=== PATIENT | female | born 1970 | race African-American/Black ===

== ENCOUNTER 2020-07-09 15:49 | Emergency (ER) | payer OTHER, SELFPAY ==
[2020-07-09 16:30] VITALS: BP 143/93; PULSE 100; RESP 18; TEMP 36.6; O2SAT 98; BMI 34.9
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
== END 2020-07-09 18:05 | disposition home or self-care (01) ==
PROVIDERS: Emergency Provider Emergency Medicine; PCP Internal Medicine
DX: S39.012A Strain of muscle, fascia and tendon of lower back, initial encounter (principal); S80.02XA Contusion of left knee, initial encounter; V43.52XA Car driver injured in collision with other type car in traffic accident, initial encounter; Y93.9 Activity, unspecified; Y92.414 Local residential or business street as the place of occurrence of the external cause; Y99.9 Unspecified external cause status
CPT/HCPCS: 72100; 73564; 99283

== ENCOUNTER → 2020-07-11 08:53 | Outpatient (BNVA) | payer OTHER, SELFPAY | PROVIDERS: PCP Internal Medicine; Referring Provider Internal Medicine; Visit Provider Advanced Practice Midwife | DX: Z76.89 Persons encountering health services in other specified circumstances (principal) ==

== ENCOUNTER 2021-09-23 11:09 | Outpatient (REF) | payer OTHER, SELFPAY ==
[2021-09-23 11:13] LABS: MANUAL DIFF FLAG NO
[2021-09-23 11:19] LABS: Appearance Urine HAZY; Color Urine YELLOW; Glucose Urine UA NEG (NEG); Leukocyte Esterase Urine NEG (NEG); Nitrite Urine NEG (NEG); Urine Blood TRACE (NEG); Urine Ketones NEG (NEG); Urine Protein 1+ MG/DL (NEG-TRACE)
[2021-09-23 11:20] LABS: Basophils Percent Auto 0.7 % (0-2); Eosinophils Absolute Auto 0.1 X10*3/uL (0.0-0.4); Eosinophils Percent Auto 1.5 % (0-4); Hematocrit 46.4 % (37.0-47.0); Hemoglobin 14.9 g/dl (12.0-16.0); Imm Gran Abs Auto 0.01 X10*3/uL (0.00-0.03); Imm Gran Pct Auto 0.2 % (0.0-0.4); Lymphocytes Absolute Auto 2.8 X10*3/uL (1.2-4.9); Lymphocytes Percent Auto 47.3 % (20-40); Mean Corpuscular HGB Conc 32.1 g/dl (31.0-35.0); Mean Corpuscular Hemoglobin 27.4 pg (27.0-33.0); Mean Corpuscular Volume 85.3 fL (80.0-98.0); Mean Platelet Volume 11.4 fL (9.4-12.3); Monocytes Absolute Auto 0.4 X10*3/uL (0.1-1.2); Monocytes Percent Auto 7.5 % (2-11); Neutrophils Absolute Auto 2.5 x10*3/uL (2.0-8.3); Neutrophils Percent Auto 42.8 % (45-73); Platelet Count 251 X10*3/uL (160-400); Red Blood Count 5.44 X10*6/uL (4.20-5.50); Red Cell Distribution Width 13.2 % (11.0-16.0); White Blood Count 5.9 X10*3/uL (4.8-10.8)
[2021-09-23 11:34] LABS: Alanine Aminotransferase 41 U/L (0-31); Albumin Level 4.4 g/dL (3.5-5.0); Alkaline Phosphatase 127 U/L (39-117); Anion Gap 13 (12-20); Aspartate Amino Transferase 26 U/L (5-31); Bilirubin Total 0.5 mg/dL (0.0-1.0); Blood Urea Nitrogen 11 mg/dL (9-16); Carbon Dioxide 30 mmol/L (22-29); Chloride 98 mmol/L (96-108); Cholesterol 182 mg/dL; Estimated Glomerular Filt Rate 54; Glucose Random 109 mg/dL (60-115); HDL Cholesterol 39 mg/dL; LDL Cholesterol Calculated 125 mg/dl; Sodium 137 mmol/L (135-145); Total Protein 7.7 g/dL (6.5-8.0); Triglycerides 94 mg/dL
[2021-09-23 11:54] LABS: Bacteria Urine 2+ /LPF; Mucus Urine 2+ /LPF; RBC Urine 0 /HPF (0); Squamous Epithelial Cell Urine 2+ /LPF
[2021-09-25 14:21] LABS: Vitamin D 25-OH Total 53.1 ng/mL (>30)
== END 2021-09-23 11:10 | disposition home or self-care (01) ==
LOC: HO.LNP 11:09
PROVIDERS: Visit Provider Internal Medicine
DX: Z00.00 Encounter for general adult medical examination without abnormal findings (principal); I10 Essential (primary) hypertension; E78.00 Pure hypercholesterolemia, unspecified; E55.9 Vitamin D deficiency, unspecified; D72.820 Lymphocytosis (symptomatic)
CPT/HCPCS: 80053; 80061; 81001; 82306; 85025

== ENCOUNTER 2021-10-31 10:39 | Outpatient (REF) | payer OTHER, SELFPAY ==
[2021-10-31 10:46] LABS: Appearance Urine HAZY; Color Urine YELLOW; Glucose Urine UA NEG (NEG); Leukocyte Esterase Urine TRACE (NEG); Nitrite Urine NEG (NEG); Specific Gravity - Urine 1.025 (1.005-1.025); Urine Blood NEG (NEG); Urine Ketones NEG (NEG); Urine Protein 1+ MG/DL (NEG-TRACE)
[2021-10-31 11:00] LABS: Bacteria Urine 2+ /LPF; Squamous Epithelial Cell Urine 4+ /LPF
[2021-10-31 11:01] LABS: RBC Urine 0-2 /HPF (0); WBC Urine 0-2 /HPF (0-4)
== END 2021-10-31 10:40 | disposition home or self-care (01) ==
LOC: HO.LNP 10:39
PROVIDERS: Visit Provider Internal Medicine
DX: R80.8 Other proteinuria (principal)
CPT/HCPCS: 81001

== ENCOUNTER 2022-08-26 13:38 | Outpatient (REF) | payer BC, SELFPAY ==
--- NOTE | ~2022-08-26 | XR_ITS ---
EXAMINATION: XR chest 2V CLINICAL INFORMATION: Reason for Exam PERSISTENT COUGH COMPARISON: None TECHNIQUE: 2 views of the chest XR/XR chest 2V FINDINGS/IMPRESSION: Clear lungs. No pneumothorax. No pleural effusion. Normal cardiomediastinal silhouette.
== END 2022-08-26 13:39 | disposition home or self-care (01) ==
LOC: HO.XRAY 13:38
PROVIDERS: PCP Internal Medicine; Visit Provider Internal Medicine
DX: R05.3 Chronic cough (principal)
CPT/HCPCS: 71046

== ENCOUNTER 2022-10-01 10:29 | Outpatient (REF) | payer BC, SELFPAY ==
[2022-10-01 10:34] LABS: MANUAL DIFF FLAG NO
[2022-10-01 10:55] LABS: Appearance Urine Clear; Color Urine Yellow; Glucose Urine UA Negative (Negative); Leukocyte Esterase Urine Negative (Negative); Nitrite Urine Negative (Negative); Specific Gravity - Urine 1.015 (1.005-1.025); Urine Blood Negative (Negative); Urine Ketones Negative (Negative); Urine Protein Negative (Neg-Trace)
[2022-10-01 10:58] LABS: Basophils Absolute Auto 0.1 X10*3/uL (0.0-0.2); Basophils Percent Auto 0.9 % (0-2); Eosinophils Absolute Auto 0.1 X10*3/uL (0.0-0.4); Eosinophils Percent Auto 1.2 % (0-4); Hematocrit 46.4 % (37.0-47.0); Hemoglobin 14.9 g/dl (12.0-16.0); Imm Gran Abs Auto 0.01 X10*3/uL (0.00-0.03); Imm Gran Pct Auto 0.2 % (0.0-0.4); Lymphocytes Absolute Auto 3.1 X10*3/uL (1.2-4.9); Lymphocytes Percent Auto 47.1 % (20-40); Mean Corpuscular HGB Conc 32.1 g/dl (31.0-35.0); Mean Corpuscular Volume 84.2 fL (80.0-98.0); Mean Platelet Volume 11.2 fL (9.4-12.3); Monocytes Absolute Auto 0.6 X10*3/uL (0.1-1.2); Monocytes Percent Auto 8.7 % (2-11); Neutrophils Absolute Auto 2.8 x10*3/uL (2.0-8.3); Neutrophils Percent Auto 41.9 % (45-73); Platelet Count 267 X10*3/uL (160-400); Red Blood Count 5.51 X10*6/uL (4.20-5.50); Red Cell Distribution Width 12.9 % (11.0-16.0); White Blood Count 6.6 X10*3/uL (4.8-10.8)
[2022-10-01 10:59] LABS: Bacteria Urine None Seen (None Seen); Hyaline Casts Urine 0-2 /LPF (0-2); RBC Urine 0-2 /HPF (0-2); WBC Urine 0-5 /HPF (0-5)
[2022-10-01 11:30] LABS: Alanine Aminotransferase 29 U/L (0-31); Albumin Level 4.4 g/dL (3.5-5.0); Alkaline Phosphatase 110 U/L (39-117); Anion Gap 17 (12-20); Aspartate Amino Transferase 22 U/L (5-31); Bilirubin Total 0.8 mg/dL (0.0-1.0); Blood Urea Nitrogen 10 mg/dL (9-16); Calcium 9.8 mg/dL (8.4-10.2); Carbon Dioxide 30 mmol/L (22-29); Chloride 98 mmol/L (96-108); Cholesterol 207 mg/dL; Estimated Glomerular Filt Rate > 60; Glucose Fasting 103 mg/dL (60-99); HDL Cholesterol 37 mg/dL; LDL Cholesterol Calculated 140 mg/dl; Potassium 3.5 mmol/L (3.3-5.1); Sodium 141 mmol/L (135-145); Total Protein 7.4 g/dL (6.5-8.0); Triglycerides 151 mg/dL
[2022-10-01 11:33] LABS: Vitamin D 25-OH Total 44.3 ng/mL (>30)
== END 2022-10-01 10:30 | disposition home or self-care (01) ==
LOC: HO.LNP 10:29
PROVIDERS: Visit Provider Internal Medicine
DX: Z00.00 Encounter for general adult medical examination without abnormal findings (principal); I10 Essential (primary) hypertension; E78.00 Pure hypercholesterolemia, unspecified; E55.9 Vitamin D deficiency, unspecified; D72.820 Lymphocytosis (symptomatic)
CPT/HCPCS: 80053; 80061; 81001; 82306; 85025

== ENCOUNTER 2023-01-08 10:34 | Outpatient (REF) | payer BC, SELFPAY ==
[2023-01-08 11:29] LABS: Alanine Aminotransferase 29 U/L (0-31); Albumin Level 4.2 g/dL (3.5-5.0); Alkaline Phosphatase 112 U/L (39-117); Aspartate Amino Transferase 22 U/L (5-31); Bilirubin Direct 0.1 mg/dL (0.0-0.5); Bilirubin Total 0.5 mg/dL (0.0-1.0); Cholesterol 206 mg/dL; HDL Cholesterol 41 mg/dL; LDL Cholesterol Calculated 141 mg/dl; Total Protein 7.2 g/dL (6.5-8.0); Triglycerides 124 mg/dL
== END 2023-01-08 10:35 | disposition home or self-care (01) ==
LOC: HO.LNP 10:34
PROVIDERS: Visit Provider Internal Medicine
DX: E78.00 Pure hypercholesterolemia, unspecified (principal)
CPT/HCPCS: 80061; 80076

== ENCOUNTER 2023-11-19 11:26 | Outpatient (REF) | payer BC, SELFPAY ==
[2023-11-19 11:29] LABS: MANUAL DIFF FLAG NO
[2023-11-19 12:08] LABS: Appearance Urine Cloudy; Color Urine Dark Yellow; Glucose Urine UA Negative (Negative); Leukocyte Esterase Urine Trace (Negative); Nitrite Urine Negative (Negative); PH 5.5 (5.0-9.0); Specific Gravity - Urine >= 1.030 (1.005-1.025); UMIC TRIGGER UACC YES; Urine Blood Negative (Negative); Urine Ketones Trace mg/dL (Negative); Urine Protein 30 (1+) mg/dL (Neg-Trace)
[2023-11-19 12:24] LABS: Basophils Absolute Auto 0.1 X10*3/uL (0.0-0.2); Basophils Percent Auto 0.9 % (0-2); Eosinophils Absolute Auto 0.1 X10*3/uL (0.0-0.4); Eosinophils Percent Auto 1.2 % (0-4); Hematocrit 43.9 % (37.0-47.0); Hemoglobin 14.2 g/dl (12.0-16.0); Imm Gran Abs Auto 0.01 X10*3/uL (0.00-0.03); Imm Gran Pct Auto 0.1 % (0.0-0.4); Lymphocytes Absolute Auto 3.3 X10*3/uL (1.2-4.9); Lymphocytes Percent Auto 48.8 % (20-40); Mean Corpuscular HGB Conc 32.3 g/dl (31.0-35.0); Mean Corpuscular Hemoglobin 27.3 pg (27.0-33.0); Mean Corpuscular Volume 84.4 fL (80.0-98.0); Mean Platelet Volume 11.6 fL (9.4-12.3); Monocytes Absolute Auto 0.3 X10*3/uL (0.1-1.2); Monocytes Percent Auto 4.8 % (2-11); Neutrophils Percent Auto 44.2 % (45-73); Platelet Count 233 X10*3/uL (160-400); Red Cell Distribution Width 13.3 % (11.0-16.0); White Blood Count 6.8 X10*3/uL (4.8-10.8)
[2023-11-19 12:43] LABS: Bacteria Urine Trace (None Seen); Hyaline Casts Urine 0-2 /LPF (0-2); Squamous Epithelial Cell Urine >20 /HPF (0-2); WBC Urine 0-5 /HPF (0-5)
[2023-11-19 12:44] LABS: Alanine Aminotransferase 25 U/L (0-31); Albumin Level 4.2 g/dL (3.5-5.0); Alkaline Phosphatase 111 U/L (39-117); Anion Gap 13 (12-20); Aspartate Amino Transferase 21 U/L (5-31); Bilirubin Total 0.4 mg/dL (0.0-1.0); Blood Urea Nitrogen 9 mg/dL (9-16); Calcium 9.4 mg/dL (8.4-10.2); Carbon Dioxide 28 mmol/L (22-29); Chloride 104 mmol/L (96-108); Cholesterol 185 mg/dL (<200); Estimated Glomerular Filt Rate > 60; Glucose Fasting 96 mg/dL (60-99); HDL Cholesterol 40 mg/dL (>40); LDL Cholesterol Calculated 118 mg/dL (<100); Potassium 3.6 mmol/L (3.3-5.1); RBC Urine 0-2 /HPF (0-2); Sodium 141 mmol/L (135-145); Total Protein 7.5 g/dL (6.5-8.0); Triglycerides 139 mg/dL (<150)
[2023-11-19 12:59] LABS: Vitamin D 25-OH Total 60.9 ng/mL (>30)
== END 2023-11-19 11:27 | disposition home or self-care (01) ==
LOC: HO.LNP 11:26
PROVIDERS: Visit Provider Internal Medicine
DX: Z00.00 Encounter for general adult medical examination without abnormal findings (principal); I10 Essential (primary) hypertension; E55.9 Vitamin D deficiency, unspecified; D72.820 Lymphocytosis (symptomatic)
CPT/HCPCS: 80053; 80061; 81001; 82306; 85025

== ENCOUNTER 2024-11-24 11:25 | Outpatient (REF) | payer BC, SELFPAY ==
--- OUTSIDE RECORDS SUMMARY | 2024-11-24 11:28 | XMS_ITS | Patient Health Record ---
Author Organization [facility] Address [address] [place] [phone] Care Team Providers Care Electronic Lab Technician Name Role Phone Dilshad Camarena MD Primary Care Provider Steve Gongora [phone] Allergies Allergen (clinical drug ingredient) Drug/Non Drug Allergy documented on EMR Reaction Allergy Type Onset Date Status Substance with sulfonamide structure and antibacterial mechanism of action (substance) Sulfa Antibiotics Unknown Drug Allergy Active Reason For Referral No Information Medications Medication SIG (Take, Route, Frequency, Duration) Notes Start Date End Date Status hydroCHLOROthiazide 25 MG Oral for 90 Active amLODIPine Besylate 10 MG TAKE 1 TABLET BY MOUTH EVERY DAY Oral for 90 Active Atorvastatin Calcium 80 MG Oral for 90 Active Immunizations Vaccine Route Administration Date Status Comme nts Influenza Unknown 04/05/2024 Refused Social History Tobacco Use: Social History Observation Description Date Details (start date - stop date) Never Smoker NA - NA Tobacco Use/Smoking Question Answer Notes Patient is a nonsmoker Alcohol Screen Question Answer Notes Did you have a drink contain ing alcohol in the past year? Yes How often did you have a dri nk containing alcohol in the past year? 2 to 4 times a month (2 points) How many drinks did you have on a typical day when you were drinking in the past year? 1 or 2 drinks (0 point) How often did you have 6 or more drinks on one occasion in the past year? Never (0 point) Points 2 Interpretation Negative Section Notes: Nonsmoker; no sig alcohol Problems Problem Type SNOMED Code ICD Code Onset Dates Problem Status W/U Status Risk Notes Problem Pre-procedure evaluation check (172998953) Encounter for other preprocedural examination (Z01.818) Active confirmed Problem Screening for colon cancer (486980513) Screening for colon cancer (Z12.11) Active confirmed Vital Signs Temperature 97.5 degrees Fahrenheit 04/05/2024 Blood pressure diastolic 00 mm Hg 04/05/2024 Height 5 ft 1.5 in in 04/05/2024 Blood pressure systolic 000 mm Hg 04/05/2024 Weight 193 lb 8 oz lbs 04/05/2024 BMI 35.97 kg/m2 04/05/2024 Encounters Encounter Location Date Provider Diagnosis [facility] [address] [place] [phone] 04/05/2024 Steve Francis Screening for colon cancer Z12.11 and Encounter for other preprocedural examination Z01.818 [facility] [address] [place] [phone] 07/17/2024 Steve Francis Assessments Encounter Date Diagnosis (ICD Code) Assessment Notes Treatment Notes Treatment Clinical Notes Section Notes 04/05/2024 Encounter for other preprocedural examination (ICD-10 - Z01.818) Overall, Braydon appears quite well. Given her age, good clinical appearance, and never having had a colonoscopy, I did recommend a colonoscopy for screening purposes. We did review the rationale for this regard to colon cancer prevention. Full consent is obtained for this, including risks of bleeding and perforation. The procedure will be done with monitored anesthesia care. She was given the below instructions regarding adjustment of her medication for the procedure. Braydon was comfortable with this plan. Thank you again for allowing me to participate in Braydon's care. I shall continue to keep you advised of her progress. 04/05/2024 Screening for colon cancer (ICD-10 - Z12.11) Do not take the Hydrochlorothiazide the day before or on the day of the colonoscopy Overall, Braydon appears quite well. Given her age, good clinical appearance, and never having had a colonoscopy, I did recommend a colonoscopy for screening purposes. We did review the rationale for this regard to colon cancer prevention. Full consent is obtained for this, including risks of bleeding and perforation. The procedure will be done with monitored anesthesia care. She was given the below instructions regarding adjustment of her medication for the procedure. Braydon was comfortable with this plan. Thank you again for allowing me to participate in Braydon's care. I shall continue to keep you advised of her progress. Plan Of Treatment Future Test Test Name Order Date COLONOSCOPY 04/05/2024 Insurance Providers Payer Name Payer Address Payer Phone Subscriber Number Group Number Insured Name Patient Relationship to Insured Coverage Start Date Coverage End Date [facility] [address] [place] [address] [id number] BRAYDON WEBB Self - patient is the insured Medical (General) History Medical History History ICD Code HTN Denies NM,DM,CVA,Lung disease,renal dise ase Hyperlipidemia Surgical History Surgery Date(Month/Year) Partial hysterectomy D&C
[2024-11-24 11:31] LABS: MANUAL DIFF FLAG NO
[2024-11-24 12:05] LABS: Basophils Percent Auto 0.7 % (0-2); Eosinophils Absolute Auto 0.1 X10*3/uL (0.0-0.4); Eosinophils Percent Auto 1.8 % (0-4); Hemoglobin 14.5 g/dl (12.0-16.0); Imm Gran Abs Auto 0.01 X10*3/uL (0.00-0.03); Imm Gran Pct Auto 0.2 % (0.0-0.4); Lymphocytes Absolute Auto 2.9 X10*3/uL (1.2-4.9); Lymphocytes Percent Auto 46.6 % (20-40); Mean Corpuscular Hemoglobin 27.3 pg (27.0-33.0); Mean Corpuscular Volume 82.7 fL (80.0-98.0); Mean Platelet Volume 11.3 fL (9.4-12.3); Monocytes Absolute Auto 0.4 X10*3/uL (0.1-1.2); Neutrophils Absolute Auto 2.7 x10*3/uL (2.0-8.3); Neutrophils Percent Auto 43.7 % (45-73); Platelet Count 249 X10*3/uL (160-400); Red Blood Count 5.32 X10*6/uL (4.20-5.50); Red Cell Distribution Width 12.9 % (11.0-16.0); White Blood Count 6.1 X10*3/uL (4.8-10.8)
[2024-11-24 12:14] LABS: Appearance Urine Cloudy; Color Urine Dark Yellow; Glucose Urine UA Negative (Negative); Leukocyte Esterase Urine Negative (Negative); Nitrite Urine Negative (Negative); PH 5.5 (5.0-9.0); Specific Gravity - Urine 1.025 (1.005-1.025); Urine Blood Negative (Negative); Urine Ketones Trace mg/dL (Negative); Urine Protein Trace mg/dL (Neg-Trace)
[2024-11-24 12:28] LABS: Bacteria Urine None Seen (None Seen); RBC Urine 0-2 /HPF (0-2); WBC Urine 0-5 /HPF (0-5)
[2024-11-24 12:38] LABS: Alanine Aminotransferase 36 U/L (0-31); Albumin Level 4.4 g/dL (3.5-5.0); Alkaline Phosphatase 108 U/L (39-117); Anion Gap 12 (12-20); Aspartate Amino Transferase 32 U/L (5-31); Bilirubin Total 0.5 mg/dL (0.0-1.0); Blood Urea Nitrogen 14 mg/dL (9-16); Calcium 9.8 mg/dL (8.4-10.2); Carbon Dioxide 32 mmol/L (22-29); Chloride 101 mmol/L (96-108); Cholesterol 164 mg/dL (<200); Estimated Glomerular Filt Rate > 60; Glucose Fasting 96 mg/dL (60-99); HDL Cholesterol 37 mg/dL (>40); LDL Cholesterol Calculated 111 mg/dL (<100); Sodium 142 mmol/L (135-145); Total Protein 7.8 g/dL (6.5-8.0); Triglycerides 84 mg/dL (<150)
[2024-11-24 12:56] LABS: Vitamin D 25-OH Total 70.3 ng/mL (>30)
== END 2024-11-24 11:26 | disposition home or self-care (01) ==
LOC: HO.LNP 11:25
PROVIDERS: Visit Provider Internal Medicine
DX: Z00.00 Encounter for general adult medical examination without abnormal findings (principal); I10 Essential (primary) hypertension; E55.9 Vitamin D deficiency, unspecified; E78.00 Pure hypercholesterolemia, unspecified
CPT/HCPCS: 80053; 80061; 81001; 82306; 85025

== ENCOUNTER 2024-12-26 10:29 | Outpatient (REF) | payer BC, SELFPAY ==
[2024-12-26 11:17] LABS: Potassium 2.9 mmol/L (3.3-5.1)
--- OUTSIDE RECORDS SUMMARY | 2024-12-26 11:45 | XMS_ITS | Data Portability ---
Author Organization [facility] [employer] [facility], [address] Address [address] [place] [address] Assessment No assessment recorded. Plan of Treatment Reminders Order Date Submit Date Provider Last Modified By Organization Details Last Modified Time Details Appointments None record ed. Lab None record ed. Referral None record ed. Procedures None record ed. Surgeries None record ed. Imaging None record ed. Medication Orders None record ed. Patient TargetsNo targets recorded. Patient InstructionsNo instructions recorded. Reason for Referral None Reported. Procedures Surgical History Date Name Laterality Status Provider Name and Address Organization Details Recorded Time OC-UDS Send Out Template NON DOT completed JASWANT Jones [employer] 06/19/2022 18:32:25 Imaging Results None recorded. Procedure Notes None recorded. Medical Equipment None Reported. Medications Name Sig Start Date Stop Date Status Note LastModified by Organization Details LastModified Time atorvastatin 40 mg tablet TAKE 1 TABLET BY MOUTH EVERY DAY active Not Available Not Available No t Available valsartan 320 mg-hydrochloro thiazide 25 mg tablet TAKE 1 TABLET BY MOUTH EVERY DAY active Not Available Not Available No t Available Vitals None Recorded Social History None recorded. Functional Status None recorded. Mental Status None recorded. Family History Nothing Reported. Medical History No medical history recorded. Gynecological HistoryNo gynecological history recorded. Obstetrics History GPAL:G 0 P 0 0 0 0 Past Encounters Encounter ID Performer Location Encounter Start Date Encounter Closed Date Diagnosis/Indication Diagnosis SNOMED-CT Code Diagnosis ICD10 Code Diagnosis Note [id number] [facility] [address] _[address] [address] 02/04/2020 09:40:19 02/04/2020 10:33:30 [id number] [facility] [address] [place] [address] [facility] [place] [address] 10/16/2021 17:17:28 10/16/2021 18:20:54 [id number] AFT[facility] Acevedo [address] [facility] [place] [address] 06/19/2022 17:13:43 06/19/2022 20:02:15 History and physical examination, pre-employment [id number] Z02.1 Health Concerns Section Related Observation LastModified by Organization Detai ls LastModified Time None Recorded Concern Status LastModified by Organization Details LastModified Time None Recorded Advance Directives Directive None Recorded Payers Insurance Date Sequence Insurance Name Policy Number Policy Griffiths Covered Member ID Griffiths Member ID Guarantor Name 06/19/2022 1 [employer] [id number] Madelindoronflor[place] Tobi [id number] Jennie Britton 06/19/2022 OC-ESCREEN Jennie Britton [id number] Jennie Britton OBGyn Episode No OBEpisode recorded.
== END 2024-12-26 10:30 | disposition home or self-care (01) ==
LOC: HO.LNP 10:29
PROVIDERS: Visit Provider Internal Medicine
DX: Z00.00 Encounter for general adult medical examination without abnormal findings (principal)
CPT/HCPCS: 84132

== ENCOUNTER 2024-12-29 10:31 | Outpatient (REF) | payer BC, SELFPAY ==
--- OUTSIDE RECORDS SUMMARY | 2024-12-26 07:18 | XMS_ITS ---
Author Organization Dilshad Camarena MD Address 10 [facility] [address] [place] [phone] Care Team Providers Care Fingernail Technician Name Role Phone Dilshad Camarena Primary Care Provider REASON FOR VISIT Critical potassium Encounters Encounter Location Date Provider Diagnosis Dilshad Camarena MD 10 [facility] [address] [place] [phone] 12/26/2024 Dilshad Camarena Plan Of Treatment Next Appt Details Provider Name:Dilshad velásquez, 11/29/2025 07:30:00 AM, [address] [place] [address], [address], [phone], Provider Name:Dilshad velásquez, 12/06/2025 09:30:00 AM, [address] [place] [address], [phone], Progress Notes * Jennie BRITTONDOB: [birth year] (54 yo F)Acc No.[id number]:12/26/2024 Patient: Anthony CHERILEELEEJennie :1970 A ge:54 Y S ex:Female Address:[address] [place] [address], [address] * true * Date: Generated for Dusty freeman/Ac/Izzyitting on: 0 12/29/2024 11:20 AM EDT
[2024-12-29 11:16] LABS: Potassium 3.3 mmol/L (3.3-5.1)
== END 2024-12-29 10:32 | disposition home or self-care (01) ==
LOC: HO.LNP 10:31
PROVIDERS: Visit Provider Internal Medicine
DX: E87.6 Hypokalemia (principal)
CPT/HCPCS: 84132

== ENCOUNTER 2025-05-28 10:02 | Outpatient (REF) | payer BC, SELFPAY | END 2025-05-28 10:03 | disposition home or self-care (01) | LOC: HO.LNP 10:02 | PROVIDERS: PCP Internal Medicine; Visit Provider Obstetrics & Gynecology | DX: Z01.419 Encounter for gynecological examination (general) (routine) without abnormal findings (principal); Z80.3 Family history of malignant neoplasm of breast; Z12.11 Encounter for screening for malignant neoplasm of colon; Z91.89 Other specified personal risk factors, not elsewhere classified | CPT/HCPCS: 87626; 88175 ==

== ENCOUNTER 2025-05-28 10:02 | Outpatient (AMB) | payer BC, SELFPAY ==
--- NOTE | 2025-05-28 10:06 | MHC.OFFVIS ---
Vital Signs 05/28/25 10:09 Height 5 ft 1 in Weight 190 lb BMI 35.9 BP 140/90 H Intake Visit Reasons: Annual/ do not r/s per Celina Charge Gang Weigher Required: No Allergies No Known Allergies Allergy (Verified 05/28/25 10:10) Post menopausal: Yes HPI Comments Details: Presenting for annual exam. No complaints. Last Pap/HPV was many years ago Last Mammogram was in 07/29 at [facility], according to the patient the results with negative No previous screening [facility] Medical History Monoallelic mutation of RAD51 gene HTN (hypertension) Surgical History H/O bilateral oophorectomy Family History Mother Breast cancer Maternal Grandmother Breast cancer Maternal Aunt Breast cancer Father HTN (hypertension) Social History Household Members: Family Housing: House Alcohol intake: current Alcohol intake frequency: holidays/special occasions only Patient Tobacco Use Status: Never used Tobacco Current occupational status: employed 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 Sexually active: No Sexual orientation: Straight/Heterosexual Gender identity: Female Female Reproductive History Menstrual Age of Menarche: 10 Total pregnancies: 5 Full term: 1 Number of Living Children: 1 Ab spontaneous: 1 Review of Systems Const All systems reviewed & are unremarkable except as noted in HPI and below Card Reports as per HPI Resp Reports as per HPI GI Reports as per HPI and Reports no additional complaints Reports as per HPI Physical Exam Vital Signs: Last Vital Signs BP 140/90 H 05/28/25 10:09 BMI result Body Mass Index 35.9 Const General: cooperative, healthy appearing and comfortable Chest Chest palpation & inspection: normal inspection of the chest and normal palpation of entire chest wall Breast/axilla inspection: normal inspection of the breasts and normal inspection of the axillae Breast/axilla palpation: normal palpation of the breasts, normal palpation of the axillae and no axillary lymphadenopathy Resp Effort & Inspection: normal respiratory effort Auscultation: clear to auscultation bilaterally Percussion: percussion normal Cardio Palpation: normal PMI Rate: regular rate Rhythm: regular rhythm Heart sounds: no murmurs and no rubs Peripheral pulses: Peripheral pulses 2+ throughout GI Inspection: Yes normal to inspection Palpation (GI): Soft to palpation, nontender, no guarding, not rigid and No hepatosplenomegaly present Percussion: Yes normal to percussion Auscultation: normal bowel sounds Rectal Exam - Female: deferred General: Yes bladder normal to palpation External Female Exam: No lesion Speculum Exam - Vagina: normal appearance of the vagina, normal palpation, normal vaginal discharge and not erythematous Speculum Exam - Cervix: normal appearance of the cervix and normal palpation Bimanual exam- vagina & uterus: normal bimanual exam, normal palpation, uterine size normal, bladder normal to palpation, consistency normal and normal palpation Bimanual Exam- Adnexa, other: normal adnexae, no masses and no tenderness Assessment & Plan Assessment & Plan (1) Well woman exam: Code(s): Z01.419 - Encounter for gynecological examination (general) (routine) without abnormal findings Category: Medical Plan: Co testing done. Counseled the patient about the recommended dietary allowance of 1200 mg of Calcium & 600 IU of vitamin D. Instructions given to patient to schedule next screening Mammogram. The patient was referred to GI for screening colonoscopy . The patient was instructed to perform monthly self-breast exams and schedule annual exam in a year. All questions answered and the patient verbalized understanding. (2) Family history of breast cancer in first degree relative: Code(s): Z80.3 - Family history of malignant neoplasm of breast Category: Medical Plan: The patient has had genetic testing that was negative, results not available, will refer to Dr. Reyes for further assessment/manage regarding her breast cancer risk status. Explained to the patient if her breast cancer risk is elevated above 20% lifetime risk she will be a candidate for intensification of screening using breast MRI in addition to screening mammogram six-months apart on yearly basis in addition to chemo prevention prevention to decrease the risk of breast cancer. All questions answered, the patient verbalized understanding Instructed the patient to call our office back in case a referral appointment is not scheduled, missed or canceled so that we will assist on rescheduling another appointment, the patient verbalized understanding agreed with the plan. Orders: Orders Pap Smear Today Z01.419 - Encounter for gynecological examination (general) (routine) without abnormal findings HPV High risk Today Z01.419 - Encounter for gynecological examination (general) (routine) without abnormal findings Referrals Gastroenterology Referral Z12.11 - Encounter for screening for malignant neoplasm of colon General Surgery Referral Z91.89 - Other specified personal risk factors, not elsewhere classified Coding Level of Care Code New Pt Prev Care 40-64y([address]) Diagnoses Well woman exam Z01.419 Family history of breast cancer in first degree relative Z80.3
[2025-05-28 10:09] VITALS: BP 140/90; BMI 35.9
== END 2025-05-28 10:57 | disposition home or self-care (01) ==
LOC: HO.HWS 10:02
PROVIDERS: PCP Internal Medicine; Visit Provider Obstetrics & Gynecology
DX: Z01.419 Encounter for gynecological examination (general) (routine) without abnormal findings (principal); Z80.3 Family history of malignant neoplasm of breast
CPT/HCPCS: 99386; 99459

== ENCOUNTER 2025-07-02 14:15 | Outpatient (AMB) | payer BC, SELFPAY ==
--- OUTSIDE RECORDS SUMMARY | 2024-03-28 08:00 | XMS_ITS ---
Author Organization [facility] Address [address] [place] [id number] Care Team Providers Care Doctor Of Optometry Name Role Phone Nicol DAVIS, Dilshad Primary Care Provider Steve Gongora [phone] REASON FOR VISIT COLON SCREENING Encounters Encounter Location Date Provider Diagnosis [facility] [address] [place] [phone] 03/28/2024 Steve Francis Plan Of Treatment No Information Progress Notes * BRAYDON WEBBDOB: [birth year] (55 yo F)Acc No.[id number]:03/28/2024 Progress Notes Patient: BRAYDON SCHOFIELD Provider: Leilani Francis MD :1970 A ge:54 Y S ex:Female Date:03/28/2024 Address:[address] [place], [place] [phone] Pcp:Dilshad Camarena MD Subjective: * Chief Complaints: * C OLON SCREENING * The named appointment provid er may or may not be the originator of this progress note, and it is not deemed complete until electronically signed by the appointment provider. Sign off status: Pending * Provider: Leilani Francis MD Date: 0 03/28/2024 Generated for Dusty freeman/Ac/eTchristinesmitting on: 04:38 PM EST
--- OUTSIDE RECORDS SUMMARY | 2024-05-22 04:15 | XMS_ITS ---
Author Organization Dilshad Camarena MD Address [address] [place] [phone] Care Team Providers Care Wall Taper Name Role Phone Dilshad Camarena Primary Care Provider REASON FOR VISIT fasting lipids Encounters Encounter Location Date Provider Diagnosis Dilshad Camarena MD 10 [facility] [address] [place] [phone] 05/22/2024 Dilshad Camarena Pure hypercholestero lemia E78.00 Assessments Encounter Date Diagnosis (ICD Code) Assessment Notes Treatment Notes Treatment Clinical Notes Section Notes 05/22/2024 Pure hypercholesterolemia (ICD-10 - E78.00) Plan Of Treatment Next Appt Details Provider Name:Dilshad velásquez, 11/29/2025 07:30:00 AM, [address] [place] [address], [address], [phone], Provider Name:Dilshad velásquez, 12/06/2025 09:30:00 AM, [address] [place] [address], [address], [phone], Progress Notes * Jennie BRITTONDOB: 1 (55 yo F)Acc No.[id number]:05/22/2024 Progress Note Patient: Jennie SCHOFIELD Provider: Trent Camarena MD :1970 A ge:54 Y S ex:Female Date:05/22/2024 Address:[address] [place] [address] Subjective: * Chief Complaints: * 1 . Fasting lipids. * Medical History: Objective: * Vitals: Assessment: * Assessment: 1. P ure hypercholesterolemia - E78.00 Plan: * Treatment: * * The named appointment provid er may or may not be the originator of this progress note, and it is not deemed complete until electronically signed by the appointment provider. Sign off status: Pending * Provider: Trent Camarena MD Date: 07/22/2023 Generated for Dusty freeman/Ac/Izzyitting on: 04:40 PM EST
--- OUTSIDE RECORDS SUMMARY | 2024-05-29 12:00 | XMS_ITS ---
Author Organization Dilshad Camarena MD Address [address] [place] [phone] Care Team Providers Care Shell Mold Bonder Name Role Phone Dilshad Camarena Primary Care Provider [phone] Allergies Allergen (clinical drug ingredient) Drug/Non Drug Allergy documented on EMR Reaction Allergy Type Onset Date Status lisinopril Lisinopril cough Drug Allergy Activ e sulfamethoxazole / trimethoprim Bactrim hives Drug Allergy Active REASON FOR VISIT 6 month Medications Medication SIG (Take, Route, Frequency, Duration) Notes Start Date End Date Status amLODIPine Besylate 10 MG take 1 tablet by mouth every day for 30 days Orally Once a day for 90 days Active hydroCHLOROthiazide 25 MG take 1 tablet by mouth every day in the morning for 30 days Orally Once a day for 90 days Active Vitamin D-3 1000 UNIT 1 capsule Orally O nce a day 09/12/2018 Active Atorvastatin Calcium 80 MG take 1 tablet by mouth every day for 30 days Orally Once a day for 90 days Active Encounters Encounter Location Date Provider Diagnosis Dilshad Camarena MD [address] [place] [phone] 05/29/2024 Dilshad Camarena Plan Of Treatment Next Appt Details Provider Name:Dilshad Kumari ier, 11/29/2025 07:30:00 AM, [address], [address], [place], [place], [phone], Provider Name:Dilshad Kumari ier, 12/06/2025 09:30:00 AM, [address], [address], [place], [phone], Progress Notes * Jennie BRITTONDOB: 1 (55 yo F)Acc No.[id number]:05/29/2024 Progress Notes Patient: Jennie SCHOFIELD Provider: Trent Camarena MD :1970 A ge:54 Y S ex:Female Date:05/29/2024 Address:[address] [place], [place] [phone] Subjective: * Chief Complaints: * 1 . 6 month. * ROS: G eneral/Constitutional: Denies C hills. D enies F atigue. D enies F ever. D enies H eadache. E NT: Denies S ore throat. R espiratory: Denies C ough. D enies S hortness of breath at rest. D enies S hortness of breath with exertion. G astrointestinal: Denies D iarrhea. D enies N ausea. * Medical History: D iscussed colonoscopy 2022. * Medications: T aking Vitamin D-3 1000 UNIT Capsule 1 capsule Orally Once a day , Taking Atorvastatin Calcium 80 MG Tablet take 1 tablet by mouth every day for 30 days Orally Once a day , Taking amLODIPine Besylate 10 MG Tablet take 1 tablet by mouth every day for 30 days Orally Once a day , Taking hydroCHLOROthiazide 25 MG Tablet take 1 tablet by mouth every day in the morning for 30 days Orally Once a day * Allergies: B actrim: hives - Side Effects, Lisinopril: cough. Objective: * Vitals: Assessment: Plan: * Treatment: * * The named appointment provid er may or may not be the originator of this progress note, and it is not deemed complete until electronically signed by the appointment provider. Sign off status: Pending * Provider: Trent Camarena MD Date: 07/29/2023 Generated for Dusty freeman/Ac/Lamin on: 04:39 PM EST
--- OUTSIDE RECORDS SUMMARY | 2024-07-17 10:00 | XMS_ITS ---
Author Organization Dilshad Camarena MD Address 10 [facility] [address] [place] [phone] Care Team Providers Care Bulldogger Name Role Phone Dilshad Camarena Primary Care Provider REASON FOR VISIT cancelled Colonoscopy Encounters Encounter Location Date Provider Diagnosis Dilshad Camarena MD 10 [facility] [address] [place] [phone] 07/17/2024 Dilshad Camarena Plan Of Treatment Next Appt Details Provider Name:Dilshad velásquez, 11/29/2025 07:30:00 AM, [address] [place] [address], [address], [phone], Provider Name:Dilshad velásquez, 12/06/2025 09:30:00 AM, [address] [place] [address], [address], [phone], Progress Notes * Jennie BRITTONDOB: 1 (54 yo F)Acc No.[id number]:07/17/2024 Patient: Anthony marycarmenJennie :1970 A ge:54 Y S ex:Female Address:[address] [place] [address] [place], [phone] * true * Date: Generated for Dusty freeman/Ac/Lamin on: 04:39 PM EST
--- OUTSIDE RECORDS SUMMARY | 2024-11-24 02:30 | XMS_ITS ---
Author Organization Dilshad Camarena MD Address [address] [place] [phone] Care Team Providers Care Clinical Trainer Name Role Phone Dilshad Camarena Primary Care Provider Results Component Value Reference Range Notes Complete Blood Count Auto Di ff Reviewed date:11/24/2024 12:48:13 PM Interpretation: Performing Lab:[facility], [address] [place] [phone] Notes/Report: White Blood Count 6.1 4.8-10.8 X10*3/uL Red Blood Count 5.32 4.20-5.50 X10*6/uL Hemoglobin 14.5 12.0-16.0 g/dl Hematocrit 44.0 37.0-47.0 % Mean Corpuscular Volume 82.7 80.0-98.0 fL Mean Corpuscular Hemoglobin 27.3 27.0-33.0 pg Mean Corpuscular HGB Conc 33.0 31.0-35.0 g/dl Red Cell Distribution Width 12.9 11.0-16.0 % Platelet Count 249 160-400 X10*3/uL Mean Platelet Volume 11.3 9.4-12.3 fL Neutrophils Percent Auto 43.7 45-73 % Imm Gran Pct Auto 0.2 0.0-0.4 % Lymphocytes Percent Auto 46.6 20-40 % Monocytes Percent Auto 7.0 2-11 % Eosinophils Percent Auto 1.8 0-4 % Basophils Percent Auto 0.7 0-2 % NRBC Pct Auto 0.0 0.0-0.2 /100WBC Neutrophils Absolute Auto 2.7 2.0-8.3 x10*3/u L Imm Gran Abs Auto 0.01 0.00-0.03 X10*3/uL Lymphocytes Absolute Auto 2.9 1.2-4.9 X10*3/u L Monocytes Absolute Auto 0.4 0.1-1.2 X10*3/uL Eosinophils Absolute Auto 0.1 0.0-0.4 X10*3/u L Basophils Absolute Auto 0.0 0.0-0.2 X10*3/uL NRBC Abs Auto 0.000 0.0-0.012 X10*3/uL Comprehensive [place]. Panel Fa st Reviewed date:11/24/2024 01:18:01 PM Interpretation: Performing Lab:[facility], [address] [place] [phone] Notes/Report: Sodium 142 135-145 mmol/L Potassium 3.0 3.3-5.1 mmol/L Chloride 101 96-108 mmol/L Carbon Dioxide 32 22-29 mmol/L Anion Gap 12 12-20 Blood Urea Nitrogen 14 9-16 mg/dL Creatinine 0.95 0.5-1.4 mg/dL Estimated Glomerular Filt Rate > 60 Chronic Kidney Disease: Estimated GFR < 60 mL/min/1.73m2 Severe Kidney Disease: Estimated GFR < 15 mL/min/1.73m2 Glucose Fasting 96 60-99 mg/dL Calcium 9.8 8.4-10.2 mg/dL Bilirubin Total 0.5 0.0-1.0 mg/dL Aspartate Amino Transferase 32 5-31 U/L Alanine Aminotransferase 36 0-31 U/L Total Protein 7.8 6.5-8.0 g/dL Albumin Level 4.4 3.5-5.0 g/dL Alkaline Phosphatase 108 39-117 U/L Lipid Panel Reviewed date:11/24/2024 01:06:13 PM Interpretation: Performing Lab:[facility], [address] [place] [phone] Notes/Report: Triglycerides 84 <150 mg/dL Desirable Triglyceride: less than 150 mg/dL Borderline High Triglyceride 150-199 mg/dL High Triglyceride: 200-499 mg/dL Very High Triglyceride: greater than or equal to 5OO mg/dL Cholesterol 164 <200 mg/dL Desirable Cholesterol: less than 200 mg/dL Borderline High Cholesterol: 200-239 mg/dL High Cholesterol: greater than 239 mg/dL LDL Cholesterol Calculated 111 <100 mg/dL Desirable LDL: less than 100 mg/dL Near Optimal/Above Optimal LDL: 110-129 mg/dL Borderline High LDL: 130-159 mg/dL High LDL: 160-189 mg/dL Very High LDL: greater than or equal to 190 mg/dL HDL Cholesterol 37 >40 mg/dL Desirable HDL: greater than 40 mg/dL Note: This HDL assay may give artificially low results in patients with liver disease. Vitamin D 25-OH Total Reviewed date:11/24/2024 01:06:21 PM Interpretation: Performing Lab:[facility], [address] [place] [phone] Notes/Report: Vitamin D 25-OH Total 70.3 >30 ng/mL Health Based Reference Values* < 20 ng/mL Deficient 20-30 ng/mL Insufficient > 30 ng/mL Sufficient *David PORTILLO. N Engl J Med. 2007;357:266-280 There is no well-established upper level of normal vitamin D levels. Some laboratories use 50 ng/mL as an upper limit of normal. However, toxicity is patient-dependent and may occur at any level. Careful correlation with the patient's presentation is necessary and, if there is concern for vitamin D toxicity, treatment should be considered irrespective of the serum level. Care must be taken in interpreting Vitamin D results from different laboratories and methodologies. Published data demonstrated that results from patients undergoing hemodialysis may show a negative bias when tested with various automated 25-OH vitamin D assays when compared to LC-MS/MS. When testing samples from patients whose predominant form of Vitamin D is Vitamin D2, such as patients receiving Vitamin D2 supplementation, results that are subtherapeutic should be confirmed with another method such as LC-MS/MS. UA ClnCatch+Micro w/rflx Cul t Reviewed date:11/24/2024 01:39:11 PM Interpretation: Performing Lab:[facility], [address] [place] [phone] Notes/Report: Urine, Clean Catch Color Urine Dark Yellow Appearance Urine Cloudy PH 5.5 5.0-9.0 Glucose Urine UA Negative Negative mg/dL Urine Blood Negative Negative Specific [place] - Urine 1.025 1.005-1.025 Urine Protein Trace Neg-Trace mg/dL Urine Ketones Trace Negative mg/dL Nitrite Urine Negative Negative Leukocyte Esterase Urine Negative Negative RBC Urine 0-2 0-2 /HPF WBC Urine 0-5 0-5 /HPF Squamous Epithelial Cell Urine 6-10 0-2 /HPF Bacteria Urine None Seen None Seen Hyaline Casts Urine 3-5 0-2 /LPF REASON FOR VISIT yearly fasting labs Encounters Encounter Location Date Provider Diagnosis Dilshad Camarena MD [address] [place] [address] [place] [phone] 11/24/2024 Dilshad Camarena Blood tests for rout ine general physical examination Z00.00 ; Essential hypertension I10 ; Vitamin D deficiency E55.9 ; Pure hypercholesterolemia E78.00 and Lymphocytosis D72.820 Assessments Encounter Date Diagnosis (ICD Code) Assessment Notes Treatment Notes Treatment Clinical Notes Section Notes 11/24/20[address] tests [address] ine general physical examination (ICD-10 - Z00.00) 11/24/2024 Essential hypertensi on (ICD-10 - I10) 11/24/2024 Vitamin D deficiency (ICD-10 - E55.9) 11/24/2024 Pure hypercholesterolemia (ICD-10 - E78.00) 11/24/2024 Lymphocytosis (ICD-1 0 - D72.820) Plan Of Treatment Next Appt Details Provider Name:Dilshad velásquez, 11/29/2025 07:30:00 AM, [address] [place] [address], Suite [facility], [place], [place], [phone], Provider Name:Dilshad velásquez, 12/06/2025 09:30:00 AM, [address] [place] [address], [address] [place] [address], [phone], Progress Notes * Elias BRITTON: 1 (55 yo F)Acc No.[id number]:11/24/2024 Progress Note Patient: Jennie SCHOFIELD Provider: Trent Camarena MD :1970 A ge:54 Y S ex:Female Date:11/24/2024 Address:[address] [place], [place] [phone] Subjective: * Chief Complaints: * 1 . Yearly fasting labs. * Medical History: Objective: * Vitals: Assessment: * Assessment: 1. B lood tests for routine general physical examination - Z00.00 (Primary) 2 .?Essential hypertension - I10 3 . V itamin D deficiency - E55.9 ?4. P ure hypercholesterolemia - E78.00 5 . L ymphocytosis - D72.820? Plan: * Treatment: 2. E ssential hypertension L AB: Complete Blood Count Auto Diff (Collection Date & Time - 11/24/2024 07:30 AM) L AB: Comprehensive [place]. Panel Fast (Collection Date & Time - 11/24/2024 07:30 AM) L AB: Lipid Panel (Collection Date & Time - 11/24/2024 07:30 AM) L AB: Vitamin D 25-OH Total (Collection Date & Time - 11/24/2024 07:30 AM) L AB: UA ClnCatch+Micro w/rflx Cult (Collection Date & Time - 11/24/2024 07:30 AM) 3. V itamin D deficiency L AB: Complete Blood Count Auto Diff (Collection Date & Time - 11/24/2024 07:30 AM) L AB: Comprehensive [place]. Panel Fast (Collection Date & Time - 11/24/2024 07:30 AM) L AB: Lipid Panel (Collection Date & Time - 11/24/2024 07:30 AM) L AB: Vitamin D 25-OH Total (Collection Date & Time - 11/24/2024 07:30 AM) L AB: UA ClnCatch+Micro w/rflx Cult (Collection Date & Time - 11/24/2024 07:30 AM) 4. P ure hypercholesterolemia L AB: Complete Blood Count Auto Diff (Collection Date & Time - 11/24/2024 07:30 AM) L AB: Comprehensive [place]. Panel Fast (Collection Date & Time - 11/24/2024 07:30 AM) L AB: Lipid Panel (Collection Date & Time - 11/24/2024 07:30 AM) L AB: Vitamin D 25-OH Total (Collection Date & Time - 11/24/2024 07:30 AM) L AB: UA ClnCatch+Micro w/rflx Cult (Collection Date & Time - 11/24/2024 07:30 AM) 5. L ymphocytosis L AB: Complete Blood Count Auto Diff (Collection Date & Time - 11/24/2024 07:30 AM) L AB: Comprehensive [place]. Panel Fast (Collection Date & Time - 11/24/2024 07:30 AM) L AB: Lipid Panel (Collection Date & Time - 11/24/2024 07:30 AM) L AB: Vitamin D 25-OH Total (Collection Date & Time - 11/24/2024 07:30 AM) L AB: UA ClnCatch+Micro w/rflx Cult (Collection Date & Time - 11/24/2024 07:30 AM) * Procedure Codes: 3 6415 VENIPUNCT, ROUTINE* * * The named appointment provid er may or may not be the originator of this progress note, and it is not deemed complete until electronically signed by the appointment provider. Sign off status: Pending * Provider: Trent Camarena MD Date: 0 11/24/2024 Generated for Dusty freeman/Ac/Lamin on: 1 04:40 PM EST
--- OUTSIDE RECORDS SUMMARY | 2024-12-01 04:30 | XMS_ITS ---
Author Organization Dilshad Camarena MD Address [address] [place] [phone] Care Team Providers Care Procurement Coordinator Name Role Phone Dilshad Camarena Primary Care Provider Allergies Allergen (clinical drug ingredient) Drug/Non Drug Allergy documented on EMR Reaction Allergy Type Onset Date Status lisinopril Lisinopril cough Drug Allergy Activ e sulfamethoxazole / trimethoprim Bactrim hives Drug Allergy Active REASON FOR VISIT annual visit Medications Medication SIG (Take, Route, Frequency, Duration) Notes Start Date End Date Status Potassium Chloride ER 10 MEQ 1 tablet with food Orally once a day for 10 days 12/01/2024 Active Vitamin D-3 1000 UNIT 1 capsule Orally O nce a day 09/12/2018 Active amLODIPine Besylate 10 MG take 1 tablet by mouth every day for 30 days Orally Once a day for 90 days Active Atorvastatin Calcium 80 MG take 1 tablet by mouth every day for 30 days Orally Once a day for 90 days Active Social History Tobacco Use: Social History Observation Description Date Details (start date - stop date) Never Smoker NA - NA Tobacco Use/Smoking Question Answer Notes Patient is a nonsmoker Additional Findings: Tobacco Non-User Cu rrent non-smoker, currently using no form of tobacco Alcohol Screen Question Answer Notes Did you have a drink containing alcohol in the p ast year? No Points 0 Interpretation Negative Vital Signs Blood pressure systolic 132 mm Hg 12/02/19 25 Blood pressure diastolic 84 mm Hg 025 Height 62 in 12/01/2024 Weight 192 lbs 12/01/2024 BMI 35.11 kg/m2 12/01/2024 Encounters Encounter Location Date Provider Diagnosis Dilshad Camarena MD [address] [place] [address] Drive [address] [place], [place] [phone] 12/01/2024 Dilshad Camarena Annual physical exam Z00.00 ; Vitamin D deficiency E55.9 ; Pure hypercholesterolemia E78.00 ; Hypokalemia E87.6 ; Essential hypertension I10 and Depression screening Z13.31 Assessments Encounter Date Diagnosis (ICD Code) Assessment Notes Treatment Notes Treatment Clinical Notes Section Notes 12/01/2024 Annual physical exam (ICD-10 - Z00.00) labs reviewed and discussed with patient 12/01/2024 Vitamin D deficiency (ICD-10 - E55.9) will stop as level is too high even taking it sporatically 12/01/2024 Pure hypercholesterolemia (ICD-10 - E78.00) stable, will continue current regiment 12/01/2024 Hypokalemia (ICD-10 - E87.6) patient verbalized understanding of medication and directions for use. will continue to monitor, lab pending 12/01/2024 Essential hypertensi on (ICD-10 - I10) stable, will continue current regiment 12/01/2024 Depression screening (ICD-10 - Z13.31) negative screen Plan Of Treatment Medication Medication Name Sig Start Date Stop Date Notes Potassium Chloride ER 10 MEQ 1 tablet wi th food Orally once a day for 10 days 12/01/2024 hydroCHLOROthiazide 25 MG take 1 tablet by mouth every day in the morning for 30 days Orally Once a day Treatment Notes Assessment Notes Annual physical exam labs reviewed and d iscussed with patient Vitamin D deficiency will stop as level is too high even taking it sporatically Pure hypercholesterolemia stable, will c ontinue current regiment Hypokalemia patient verbalized u nderstanding of medication and directions for use. will continue to monitor, lab pending Essential hypertension stable, will cont inue current regiment Depression screening negative screen Next Appt Details Provider Name:Dilshad Kumari ier, 11/29/2025 07:30:00 AM, [address], [address], [place], [place], [phone], Provider Name:Dilshad Kumari ier, 12/06/2025 09:30:00 AM, [address] [facility] [address], [address], [place], [place], [phone], Progress Notes * Jennie BRITTONDOB: 1 (54 yo F)Acc No.[id number]:12/01/2024 Progress Notes Patient: Jennie SCHOFIELD Provider: Trent Camarena MD :1970 A ge:54 Y S ex:Female Date:12/01/2024 Address:[address] [place], [place] [phone] Subjective: * Chief Complaints: * A nnual visit * HPI: D epression Screening: PHQ-9 L ittle interest or pleasure in doing things N ot at all, F eeling down, depressed, or hopeless N ot at all, T rouble falling or staying asleep, or sleeping too much N ot at all, F eeling tired or having little energy N ot at all, P oor appetite or overeating N ot at all, F eeling bad about yourself or that you are a failure, or have let yourself or your family down N ot at all, T rouble concentrating on things, such as reading the newspaper or watching television N ot at all, M oving or speaking so slowly that other people could have noticed; or the opposite, being so fidgety or restless that you have been moving around a lot more than usual N ot at all, T houghts that you would be better off or of hurting yourself in some way N ot at all, T otal Score 0 . I nterpretation and Intervention D epression Screening Findings N egative, F ollow-Up for Depression : review of PHQ-9 found negative result, no follow-up needed. C ommunication Needs: Communication Needs D oes the patient have a hearing impairment N o, D oes the patient have a vision impairment? Y es, I f yes, what is the vision impairment? G lasses, D oes the patient have a cognition impairment? N o. F all Risk: History H ave you had any falls with injury in the past year? N o, H ave you had two or more falls in the past year? N o. S DANILO Questions: SDOH Questions I n the past year have you been worried about losing housing? N o, I n the past year have you or any family members you live with been unable to get any of the following when it was really needed? Check all that apply: N one. S ymptom(s): patient is a 54 yo female here for annual visit with review of recent labs and follow up of chronic issues. * ROS: G eneral/Constitutional: Change in appetite d enies. C hills d enies. F ever d enies. O phthalmologic: Blurred vision d enies. D ischarge d enies. P ain d enies. E NT: Decreased hearing d enies. S ore throat d enies.?Swollen glands d enies. E ndocrine: Cold intolerance d enies. E xcessive thirst d enies. H eat intolerance d enies. W eight loss d enies. R espiratory: Cough d enies. S hortness of breath at rest d enies. S hortness of breath with exertion d enies. W heezing d enies. C ardiovascular: Chest pain at rest d enies. C hest pain with exertion?denies. I rregular heartbeat d enies. S hortness of breath d enies. ? G astrointestinal: Abdominal pain d enies. C hange in bowel habits d enies. D iarrhea d enies. N ausea d enies. R ectal bleeding d enies. V omiting d enies . G enitourinary: Blood in urine d enies. D ifficulty urinating d enies. F requent urination d enies. U rinary incontinence D enies. M usculoskeletal: Painful joints d enies. W eakness d enies. ? S kin: Dry skin d enies. I tching d enies. D enies?Mole(s), changes in moles, new moles or any lesions of concern. D enies P hotosensitivity. R yony d enies. N eurologic: Dizziness d enies. F ainting d enies. H eadache?denies. * Medical History: * Surgical History: * Hospitalization/Major Diagno stic Procedure: * Family History: F ather: 72 yrs. M other: 65 yrs. 3 brother(s) , 2 sister(s) . 1 daughter(s) . . Father-MVA 1 brother 32 [place] Mother ancer, Denies mental health/substance abuse family history, Denies mental health/substance abuse family history, Denies mental health/substance abuse family history, No pertinent family medical history. * Social History: T obacco Use: T obacco Use/Smoking P atient is a n onsmoker, A dditional Findings: Tobacco Non-User C urrent non-smoker, currently using no form of tobacco. D rugs/Alcohol: A lcohol Screen D id you have a drink containing alcohol in the past year? N o, P oints 0 , I nterpretation N egative. M iscellaneous: C affeine: yes, frequency:, 1-2 cups per day. Children: yes. Community involvements: no. Exercise: no. Home smoke detector use: yes. Housing: renting. Living with: family. Marital status: single. Occupation: weeks/months/years, works full-time. Pets: none. Travel outside of the [place]: yes, [facility]. H ousehold: H suzanne mckeon: Andrew Mendoza of education: Herbie Cornejo yearly income: S ufficient. * Medications: T akingVitamin D-3 1000 UNIT Capsule 1 capsule Orally Once a day Atorvastatin Calcium 80 MG Tablet take 1 tablet by mouth every day for 30 days Orally Once a day amLODIPine Besylate 10 MG Tablet take 1 tablet by mouth every day for 30 days Orally Once a day hydroCHLOROthiazide 25 MG Tablet take 1 tablet by mouth every day in the morning for 30 days Orally Once a day Medication List reviewed and reconciled with the patientTaking Vitamin D-3 1000 UNIT Capsule 1 capsule Orally Once a day Taking Atorvastatin Calcium 80 MG Tablet take 1 tablet by mouth every day for 30 days Orally Once a day Taking amLODIPine Besylate 10 MG Tablet take 1 tablet by mouth every day for 30 days Orally Once a day Taking hydroCHLOROthiazide 25 MG Tablet take 1 tablet by mouth every day in the morning for 30 days Orally Once a day Medication List reviewed and reconciled with the patient * Allergies: B actrim: hives - Side EffectsLisinopril: coughyes[Allergies Verified] Objective: * Vitals: H t: 62, Wt: 192, BMI:35.11, BP:132/84, Wt-k.09. * P ast Orders: L ab:UA ClnCatch+Micro w/rflx Cult (Order Date - 11/24/2024) (Collection Date & Time - 11/24/2024 07:30 AM) Value Reference Range Color Urine Dark Yellow - Appearance Urine Cloudy - PH 5.5 5.0-9.0 - Glucose Urine UA Negative Negative - mg/dL Urine Blood Negative Negative - Specific [place] - Urine 1.025 1.005-1.025 - Urine Protein Trace Neg-Trace - mg/dL Urine Ketones Trace Negative - mg/dL Nitrite Urine Negative Negative - Leukocyte Esterase Urine Negative Negative - RBC Urine 0-2 0-2 - /HPF WBC Urine 0-5 0-5 - /HPF Squamous Epithelial Cell Urine 6-10 0-2 - /HP F Bacteria Urine None Seen None Seen - Hyaline Casts Urine 3-5 0-2 - /LPF L ab:Complete Blood Count Auto Diff (Order Date - 11/24/2024) (Collection Date & Time - 11/24/2024 07:30 AM) Value Reference Range White Blood Count 6.1 4.8-10.8 - X10*3/uL Red Blood Count 5.32 4.20-5.50 - X10*6/uL Hemoglobin 14.5 12.0-16.0 - g/dl Hematocrit 44.0 37.0-47.0 - % Mean Corpuscular Volume 82.7 80.0-98.0 - fL Mean Corpuscular Hemoglobin 27.3 27.0-33.0 - pg Mean Corpuscular HGB Conc 33.0 31.0-35.0 - g/ dl Red Cell Distribution Width 12.9 11.0-16.0 - % Platelet Count 249 160-400 - X10*3/uL Mean Platelet Volume 11.3 9.4-12.3 - fL Neutrophils Percent Auto 43.7 L 45-73 - % Imm Gran Pct Auto 0.2 0.0-0.4 - % Lymphocytes Percent Auto 46.6 H 20-40 - % Monocytes Percent Auto 7.0 2-11 - % Eosinophils Percent Auto 1.8 0-4 - % Basophils Percent Auto 0.7 0-2 - % NRBC Pct Auto 0.0 0.0-0.2 - /100WBC Neutrophils Absolute Auto 2.7 2.0-8.3 - x10* 3/uL Imm Gran Abs Auto 0.01 0.00-0.03 - X10*3/uL Lymphocytes Absolute Auto 2.9 1.2-4.9 - X10* 3/uL Monocytes Absolute Auto 0.4 0.1-1.2 - X10*3/ uL Eosinophils Absolute Auto 0.1 0.0-0.4 - X10* 3/uL Basophils Absolute Auto 0.0 0.0-0.2 - X10*3/ uL NRBC Abs Auto 0.000 0.0-0.012 - X10*3/uL L ab:Comprehensive [facility]. Panel Fast (Order Date - 11/24/2024) (Collection Date & Time - 11/24/2024 07:30 AM) Value Reference Range Sodium 142 135-145 - mmol/L Bilirubin Total 0.5 0.0-1.0 - mg/dL Aspartate Amino Transferase 32 H 5-31 - U/L Alanine Aminotransferase 36 H 0-31 - U/L Total Protein 7.8 6.5-8.0 - g/dL Albumin Level 4.4 3.5-5.0 - g/dL Alkaline Phosphatase 108 39-117 - U/L Potassium 3.0 L 3.3-5.1 - mmol/L Chloride 101 96-108 - mmol/L Carbon Dioxide 32 H 22-29 - mmol/L Anion Gap 12 12-20 - Blood Urea Nitrogen 14 9-16 - mg/dL Creatinine 0.95 0.5-1.4 - mg/dL Estimated Glomerular Filt Rate > 60 - Glucose Fasting 96 60-99 - mg/dL Calcium 9.8 8.4-10.2 - mg/dL L ab:Lipid Panel (Order Date - 11/24/2024) (Collection Date & Time - 11/24/2024 07:30 AM) Value Reference Range Triglycerides 84 <150 - mg/dL Cholesterol 164 <200 - mg/dL LDL Cholesterol Calculated 111 H <100 - mg/dL HDL Cholesterol 37 L >40 - mg/dL L ab:Vitamin D 25-OH Total (Order Date - 11/24/2024) (Collection Date & Time - 11/24/2024 07:30 AM) Value Reference Range Vitamin D 25-OH Total 70.3 >30 - ng/mL * Examination: G eneral Examination: GENERAL APPEARANCE: w ell developed, well nourished, in no acute distress. HEAD: n ormocephalic, atraumatic. EYES: p upils equal, round, reactive to light and accommodation, sclera non-icteric. EARS: n ormal. ORAL CAVITY: m ucosa moist. THROAT: c lear. NECK/THYROID: n antonio supple, full range of motion, no cervical lymphadenopathy, no bruits. SKIN: w arm and dry, no suspicious lesions. HEART: r egular rate and rhythm, S1, S2 normal, no murmurs.? LUNGS: c lear to auscultation bilaterally. BREASTS: N o mass, no lump. ABDOMEN: s oft, nontender, nondistended, bowel sounds present, normal, no organomegaly , no masses palpable. RECTAL EXAM: d one by oil mixer. FEMALE GENITOURINARY: d one by oil mixer. EXTREMITIES: n o clubbing, cyanosis, or edema. NEUROLOGIC: n onfocal, motor strength normal upper and lower extremities, sensory exam intact. Assessment: * Assessment: 1. A nnual physical exam - Z00.00 (Primary) 2 . V itamin D deficiency - E55.9 3 . P ure hypercholesterolemia - E78.00 4 . H ypokalemia - E87.6 5 . E ssential hypertension - I10 6 . D epression screening - Z13.31 Plan: * Treatment: 2. V itamin D deficiency Notes: will stop as level is too high even taking it sporatically 3. P ure hypercholesterolemia Notes: stable, will continue current regiment 4. H ypokalemia Start Potassium Chloride ER Tablet Extended Release, 10 MEQ, 1 tablet with food, Orally, once a day, 10 days, 10 Tablet. Notes: patient verbalized understanding of medication and directions for use. will continue to monitor, lab pending 5. E ssential hypertension Notes: stable, will continue current regiment 6. D epression screening Notes: negative screen * Procedure Codes: * Preventive Medicine: Counseling: C are goal follow-up plan: C ounseling for abnormal BMI provided?Yes, A peter Normal BMI Follow-up G iving encouragement to exercise. * * Sign off status: Completed true * Provider: Trent Camarena MD Date: 0 12/01/2024 Generated for Dusty freeman/Ac/Elizabethransmitting on: 1 04:40 PM EST History and Physical Notes * HPI (History of Present Illness) Category Sub-Category Detail Notes Category Not es Symptom(s) patient is a 54 yo female here for annual visit with review of recent labs and follow up of chronic issues Depression Screening PHQ-9 Little inte rest or pleasure in doing things: Not at all Feeling down, depressed, or hopeless: No t at all Trouble falling or staying asleep, or sl eeping too much: Not at all Feeling tired or having little energy: N ot at all Poor appetite or overeating: Not at all Feeling bad about yourself o r that you are a failure, or have let yourself or your family down: Not at all Trouble concentrating on thi ngs, such as reading the newspaper or watching television: Not at all Moving or speaking so slowly that other people could have noticed; or the opposite, being so fidgety or restless that you have been moving around a lot more than usual: Not at all Thoughts that you would be b sourav off or of hurting yourself in some way: Not at all Total Score: 0 Interpretation and Intervention Depression Junior ramirez Findings: Negative Follow-Up for Depression: : review of PH Q-9 found negative result, no follow-up needed SDOH Questions SDOH Questions In the past year have you been worried about losing housing?: No In the past year have you or any family members you live with been unable to get any of the following when it was really needed? Check all that apply:: None Fall Risk History Have you had any falls with injury i n the past year?: No Have you had two or more falls in the st year?: No Communication Needs Communication Needs Does the patient have a hearing impairment: No Does the patient have a vision impairmen t?: Yes If yes, what is the vision impairment?: Glasses Does the patient have a cognition impair ment?: No Examination Category Sub-Category Detail Notes Category Not es General Examination GENERAL APPEARANCE: well dev eloped, well nourished, in no acute distress HEAD: normocephalic, atrau matic EYES: pupils equal, round, reactive to light and accommodation, sclera non-icteric EARS: normal THROAT: clear NECK/THYROID: neck supple, full ra nge of motion, no cervical lymphadenopathy, no bruits HEART: regular rate and rhy thm, S1, S2 normal, no murmurs LUNGS: clear to auscultatio n bilaterally ABDOMEN: soft, nontender, non distended, bowel sounds present, normal, no organomegaly , no masses palpable NEUROLOGIC: nonfocal, motor stre ngth normal upper and lower extremities, sensory exam intact SKIN: warm and dry, no dania picious lesions EXTREMITIES: no clubbing, cyanosi s, or edema BREASTS: No mass, no lump RECTAL EXAM: done by oil mixer FEMALE GENITOURINARY: done by oil mixer ORAL CAVITY: mucosa moist
--- OUTSIDE RECORDS SUMMARY | 2024-12-01 05:06 | XMS_ITS ---
Author Organization Dilshad Camarena MD Address [address] [place] [phone] Care Team Providers Care Detasseling Crew Supervisor Name Role Phone Dilshad Camarena Primary Care Provider [phone] REASON FOR VISIT FYI 6 month appt and lipids Encounters Encounter Location Date Provider Diagnosis Dilshad Camarena MD [address] [facility] [address] [place] [phone] 12/01/2024 Dilshad Camarena Plan Of Treatment Next Appt Details Provider Name:Dilshad velásquez, 11/29/2025 07:30:00 AM, [address] [place] [address], [address], [phone], Provider Name:Dilshad velásquez, 12/06/2025 09:30:00 AM, [address] [place] [address], [address], [phone], Progress Notes * Jennie BRITTONDOB: 1 (54 yo F)Acc No.[id number]:12/01/2024 Patient: Anthony Jennie FARFAN :1970 A ge:54 Y S ex:Female Address:[address] [place] [address] [place], [address] * true * Date: Generated for Dusty freeman/Ac/Lamin on: 04:39 PM EST
--- OUTSIDE RECORDS SUMMARY | 2024-12-26 03:00 | XMS_ITS ---
Author Organization Dilshad Camarena MD Address [address] [place] [phone] Care Team Providers Care Briquette Maker Name Role Phone Dilshad Camarena Primary Care Provider [phone] Results Component Value Reference Range Notes Potassium Reviewed date:12/26/2024 12:26:40 PM Interpretation: Performing Lab:[facility], [address] [place] [phone] Notes/Report: Potassium 2.9 3.3-5.1 mmol/L Critical value for K: Results called to and read back by: LENA Khoury Person calling: CHANDLER Date: 12-26-24 Time: 1117 REASON FOR VISIT potassium Encounters Encounter Location Date Provider Diagnosis Dilshad Camarena MD [address] [place] [phone] 12/26/2024 Dilshad Camarena Annual physical exam Z00.00 Assessments Encounter Date Diagnosis (ICD Code) Assessment Notes Treatment Notes Treatment Clinical Notes Section Notes 12/26/2024 Annual physical exam (ICD-10 - Z00.00) Plan Of Treatment Next Appt Details Provider Name:Dilshad velásquez, 11/29/2025 07:30:00 AM, [address], [address], [place], [place], [phone], Provider Name:Dilshad Kumari ier, 12/06/2025 09:30:00 AM, [address], [address], [place], [place], [phone], Progress Notes * Jennie BRITTONDOB: 1 (55 yo F)Acc No.[id number]:12/26/2024 Progress Note Patient: Jennie SCHOFIELD Provider: Trent Camarena MD :1970 A ge:54 Y S ex:Female Date:12/26/2024 Address:[address] [place], [place] [phone] Subjective: * Chief Complaints: * 1 . Potassium. * Medical History: Objective: * Vitals: Assessment: * Assessment: 1. A nnual physical exam - Z00.00 (Primary) Plan: * Treatment: * Procedure Codes: 3 6415 VENIPUNCT, ROUTINE* * * The named appointment provid er may or may not be the originator of this progress note, and it is not deemed complete until electronically signed by the appointment provider. Sign off status: Pending * Provider: Trent Camarena MD Date: 12/26/2024 Generated for Dusty freeman/Ac/Izzyitting on: 04:39 PM EST
--- OUTSIDE RECORDS SUMMARY | 2024-12-26 06:18 | XMS_ITS ---
Author Organization Dilshad Camarena MD Address [address] [facility] [address] [place] [phone] Care Team Providers Care Chef Kitchen Manager Name Role Phone Dilshad Camarena Primary Care Provider REASON FOR VISIT Critical potassium Encounters Encounter Location Date Provider Diagnosis Dilshad Camarena MD [address] [facility] [address] [place] [phone] 12/26/2024 Dilshad Camarena Plan Of Treatment Next Appt Details Provider Name:Dilshad velásquez, 11/29/2025 07:30:00 AM, [address] [place] [address], [address], [phone], Provider Name:Dilshad velásquez, 12/06/2025 09:30:00 AM, [address] [place] [address], [phone], Progress Notes * Jennie BRITTONDOB: [birth year] (54 yo F)Acc No.[id number]:12/26/2024 Patient: Anthony CHERILEELEEJennie :1970 A ge:54 Y S ex:Female Address:[address] [place] [address], [address] * true * Date: Generated for Dusty freeman/Ac/Lamin on: 04:38 PM EST
--- OUTSIDE RECORDS SUMMARY | 2024-12-26 07:12 | XMS_ITS ---
Author Organization Dilshad Camarena MD Address [address] [place] [phone] Care Team Providers Care Diplomatic Interpreter/Translator Name Role Phone Dilshad Camarena Primary Care Provider Medications Medication SIG (Take, Route, Frequency, Duration) Notes Start Date End Date Status Potassium Chloride ER 10 MEQ take one tablet 3 times today then Orally once a day for 10 days 12/01/2024 Active Encounters Encounter Location Date Provider Diagnosis Dilshad Camarena MD [address] [facility] [address] [place] [phone] 12/26/2024 Dilshad Camarena Hypokalemia E87.6 Assessments Encounter Date Diagnosis (ICD Code) Assessment Notes Treatment Notes Treatment Clinical Notes Section Notes 12/26/2024 Hypokalemia (ICD-10 - E87.6) Plan Of Treatment Medication Medication Name Sig Start Date Stop Date Notes Potassium Chloride ER 10 MEQ take one ta blet 3 times today then Orally once a day for 10 days 12/01/2024 Next Appt Details Provider Name:Dilshad velásquez, 11/29/2025 07:30:00 AM, [facility], [address], [phone], Provider Name:Dilshad Ely Leonardosebastian michaelr, 12/06/2025 09:30:00 AM, [address], [address], [place], [phone], Progress Notes * Madelin BRITTONaramDOB: 1 (54 yo F)Acc No.[id number]:12/26/2024 Patient: [place]o [place] :1970 A ge:54 Y S ex:Female Address:[address] [place] [address] [place], [address] * Refills Refill Potassium Chloride ER Tablet Extended Release, 10 MEQ, Orally, 15, take one tablet 3 times today then, once a day, 10 days * true * Date: Generated for Dusty freeman/Ac/Izzyitting on: 04:39 PM EST
--- OUTSIDE RECORDS SUMMARY | 2024-12-29 04:00 | XMS_ITS ---
Author Organization Dilshad Camarena MD Address [address] [place] [phone] Care Team Providers Care Field Laborer Name Role Phone Dilshad Camarena Primary Care Provider [phone] Allergies Allergen (clinical drug ingredient) Drug/Non Drug Allergy documented on EMR Reaction Allergy Type Onset Date Status lisinopril Lisinopril cough Drug Allergy Activ e sulfamethoxazole / trimethoprim Bactrim hives Drug Allergy Active Results Component Value Reference Range Notes Potassium Reviewed date:12/29/2024 01:03:12 PM Interpretation: Performing Lab:[facility], [address] [place] [phone] Notes/Report: Potassium 3.3 3.3-5.1 mmol/L REASON FOR VISIT 4 week Medications Medication SIG (Take, Route, Frequency, Duration) Notes Start Date End Date Status Vitamin D-3 1000 UNIT 1 capsule Orally O nce a day 09/12/2018 Active Atorvastatin Calcium 80 MG take 1 tablet by mouth every day for 30 days Orally Once a day for 90 days Active amLODIPine Besylate 10 MG take 1 tablet by mouth every day for 30 days Orally Once a day for 90 days Active Potassium Chloride ER 10 MEQ take one tablet 3 times today then Orally once a day for 10 days 12/01/2024 Active Vital Signs Blood pressure systolic 128 mm Hg 12/30/19 25 Blood pressure diastolic 80 mm Hg 025 Height 62 in 12/29/2024 Weight 198 lbs 12/29/2024 BMI 36.21 kg/m2 12/29/2024 weight is up 6 pounds since 12-01-24 Encounters Encounter Location Date Provider Diagnosis Dilshad Camarena MD [address] [place] [address] [place] [id number] 12/29/2024 Dilshad Camarena Hypokalemia E87.6 and Edema R60.9 Assessments Encounter Date Diagnosis (ICD Code) Assessment Notes Treatment Notes Treatment Clinical Notes Section Notes 12/29/2024 Hypokalemia (ICD-10 - E87.6) had not stopped her hctz as directed now is off. started on potassium 12/29/2024 Edema (ICD-10 - R60.9) no evidence to suggest dvt since exam is norm and the swelling comes and goes Plan Of Treatment Treatment Notes Assessment Notes Hypokalemia had not stopped her hctz as directed now is off. started on potassium Edema no evidence to sugge st dvt since exam is norm and the swelling comes and goes Next Appt Details Follow Up: 1 Year, Reason: Provider Name:Dilshad velásquez, 11/29/2025 07:30:00 AM, [address] [place] [address], [address], [phone], Provider Name:Dilshad velásquez, 12/06/2025 09:30:00 AM, [address] [place] [address], [place] [address], [place], [phone], Progress Notes * Jennie BRITTONDOB: 1 (54 yo F)Acc No.[id number]:12/29/2024 Progress Notes Patient: Jennie SCHOFIELD Provider: Trent Camarena MD :1970 A ge:54 Y S ex:Female Date:12/29/2024 Address:[address] [place], [place] [id number] Subjective: * Chief Complaints: * 4 week * HPI: S ymptom(s): patient is a 54 yo female here for 4 week follow up visit. * ROS: G eneral/Constitutional: Comments c omplaining of intermittant swelling of feet after her flight to [facility]. D enies C hills. D enies F atigue. D enies F ever.?Denies H eadache. E NT: Denies S ore throat. R espiratory: Denies C ough. D enies S hortness of breath at rest. D enies S hortness of breath with exertion. G astrointestinal: Denies D iarrhea. D enies N ausea. * Medical History: * Surgical History: * Hospitalization/Major Diagno stic Procedure: * Medications: T akingVitamin D-3 1000 UNIT Capsule 1 capsule Orally Once a day Atorvastatin Calcium 80 MG Tablet take 1 tablet by mouth every day for 30 days Orally Once a day amLODIPine Besylate 10 MG Tablet take 1 tablet by mouth every day for 30 days Orally Once a day Potassium Chloride ER 10 MEQ Tablet Extended Release take one tablet 3 times today then Orally once a day Medication List reviewed and reconciled with the patientTaking Vitamin D-3 1000 UNIT Capsule 1 capsule Orally Once a day Taking Atorvastatin Calcium 80 MG Tablet take 1 tablet by mouth every day for 30 days Orally Once a day Taking amLODIPine Besylate 10 MG Tablet take 1 tablet by mouth every day for 30 days Orally Once a day Taking Potassium Chloride ER 10 MEQ Tablet Extended Release take one tablet 3 times today then Orally once a day Medication List reviewed and reconciled with the patient * Allergies: B actrim: hives - Side EffectsLisinopril: coughyes[Allergies Verified] Objective: * Vitals: H t: 62, Wt: 198, BMI:36.21, BP:128/80, Wt-k.81. weight is up 6 pounds since 12-01-24. * Examination: G eneral Examination: GENERAL APPEARANCE: a lert, well hydrated, in no distress.? HEART: n o murmurs, rubs, gallops, regular rate and rhythm.? LUNGS: n o wheezes, rales, rhonchi, good air movement. EXTREMITIES: n o calf tenderness and no swelling. ? Assessment: * Assessment: 1. H ypokalemia - E87.6 (Primary) 2 . E rohit - R60.9 Plan: * Treatment: 2. E rohit Notes: no evidence to suggest dvt since exam is norm and the swelling comes and goes * Procedure Codes: 3 6415 VENIPUNCT, ROUTINE* * Follow Up: 1 Year * * Sign off status: Completed true * Provider: Trent Camarena MD Date: 0 12/29/2024 Generated for Dusty freeman/Ac/Dagmarsmitting on: 04:39 PM EST History and Physical Notes * HPI (History of Present Illness) Category Sub-Category Detail Notes Category Not es Symptom(s) patient is a 54 yo female here for 4 week follow up visit Examination Category Sub-Category Detail Notes Category Not es General Examination GENERAL APPEARANCE: alert, w ell hydrated, in no distress HEART: no murmurs, rubs, ga llops, regular rate and rhythm LUNGS: no wheezes, rales, r honchi, good air movement EXTREMITIES: no calf tenderness a nd no swelling
[2025-07-02 14:17] VITALS: BP 162/92; PULSE 86; BMI 37.0
--- NOTE | 2025-07-02 14:17 | A.OFFVIS_ITS ---
Vital Signs 07/02/25 14:17 Height 5 ft 1 in Weight 196 lb BMI 37.0 BP 162/92 H Blood Pressure Location Rt brachial Position Sitting Pulse 86 Intake Visit Reasons: Family history of malignant neoplasm of breast Intake Note: Patient is seen in office for family history of malignant neoplasm of the breast. Mother, maternal GM, brother hx of breast CA. Reports genetic testing around 2016. Partial hysterectomy in 2019. Pt c/o: no concerns. Denies lumps, bumps, nipple discharge. 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 She has a strong family history of breast cancer including her mother who of breast cancer at the age of 66 as well as her maternal grandmother, and maternal aunt. Her brother underwent an excision of a cyst of the breast was benign. The patient underwent genetic testing which was positive for monoallelic mutation in the RAD51 gene. She denies any previous history of breast problems or breast surgery. She denies any current breast symptoms. She was previously being screen with breast MRIs at an outside institution along with the annual mammograms however her insurance would not pay for the MRI. [place] [place] which revealed no mammographic evidence of malignancy (BI-RADS 1). Menarche was at age 10 and she is 5 para 1. Her 1st child was born when she was 31 years old. Underwent a bilateral oophorectomy in June 2019 so she no longer has periods since then. She denies hormone replacement therapy. 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 Sexual orientation: Straight/Heterosexual Gender identity: Female Female Reproductive History Menstrual Age of Menarche: 10 Review of Systems Const All systems reviewed & are unremarkable except as noted in HPI and below Physical Exam Vital Signs: Last Vital Signs Pulse 86 07/02/25 14:17 BP 162/92 H 07/02/25 14:17 BMI result Body Mass Index 37.0 Const General: cooperative and no acute distress Nutritional Appearance: well nourished Orientation/consciousness: patient oriented x3 Limitations: no limitations HEENT Head: Yes normocephalic and Yes atraumatic Ears: hearing grossly normal bilaterally Chest Other: Left breast: No skin change, no nipple retraction, no nipple discharge, no palpable mass, no enlarged lymph nodes. Right breast: No skin change, no nipple retraction, no nipple discharge, no palpable mass, no enlarged lymph nodes Resp Effort & Inspection: normal respiratory effort, no audible wheezes, no cough and no respiratory distress Cardio Jugular venous distension: no JVD GI Inspection: Yes normal to inspection Skin Other: Warm, dry, no rash Neuro General: patient oriented x3 Extrem General: Yes no clubbing, cyanosis or edema Assessment & Plan Assessment & Plan (1) Family history of breast cancer in first degree relative: Code(s): Z80.3 - Family history of malignant neoplasm of breast Category: Medical (2) Monoallelic mutation of RAD51 gene: Code(s): Z15.89 - Genetic susceptibility to other disease Category: Medical Plan 55-year-old female patient at increased risk for breast cancer due to family history and genetic risk presenting for high-risk breast examination today. She was previously followed at an outside institution for high-risk screening. Her most recent mammogram of 10/09/2024 revealed no mammographic evidence of m alignancy (BI-RADS 1). She was previously being evaluated with a breast MRIs however her current insurance does not pay for the testing. Examination today revealed no suspicious findings in either breast. We discussed continuing with the breast MRI screening or ultrasound screening but she is not interested at this time. I recommended alternating breast examination is between her screen tacker and our office and she will return approximately 1 year for routine breast examination. She is welcome to call sooner for any new concerns. Coding Level of Care Code New Pt Level 4 (51395) Diagnoses Family history of breast cancer in first degree relative Z80.3 Monoallelic mutation of RAD51 gene Z15.89
--- OUTSIDE RECORDS SUMMARY | 2025-07-02 16:39 | XMS_ITS | Patient Health Record ---
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 Name Role Phone Dilshad Camarena MD Primary Care Provider Steve Gongora [phone] Allergies Allergen (clinical drug ingredient) Drug/Non Drug Allergy documented on EMR Reaction Allergy Type Onset Date Status Substance with sulfonamide structure and antibacterial mechanism of action (substance) Sulfa Antibiotics Unknown Drug Allergy Active Reason For Referral No Information Medications Medication SIG (Take, Route, Frequency, Duration) Notes Start Date End Date Status hydroCHLOROthiazide 25 MG Tablet Oral; Duration: 90 Active amLODIPine Besylate 10 MG Tablet TAKE 1 TABLET BY MOUTH EVERY DAY Oral; Duration: 90 Active Atorvastatin Calcium 80 MG Tablet Oral; Duration: 90 Active Immunizations Vaccine Route Administration Date Status Comme nts Influenza Unknown 04/05/2024 Refused Social History Tobacco Use: Social History Observation Description Date Details (start date - stop date) Never Smoker NA - NA Social History Drugs/Alcohol: Social Info Question Answer Notes Alcohol Screen Did you have a drink containing alcohol in the past year? Yes How often did you have a drink containing alcohol in the past year? 2 to 4 times a month (2 points) How many drinks did you have on a typical day when you were drinking in the past year? 1 or 2 drinks (0 point) How often did you have 6 or more drinks on one occasion in the past year? 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 [employer] Section Notes: Nonsmoker; no sig alcohol Problems Problem Type SNOMED Code ICD Code Onset Dates Problem Status W/U Status Risk Notes Problem Pre-procedure evaluation check (708062533) Encounter for other preprocedural examination (Z01.818) Active confirmed Problem Screening for colon cancer (565293316) Screening for colon cancer (Z12.11) Active confirmed Encounters Encounter Location Date Provider Diagnosis [facility] [address] [place] [address] 07/17/2024 Steve Francis Plan Of Treatment Future Test Test Name Order Date COLONOSCOPY 04/05/2024 Insurance Providers Payer Name Payer Address Payer Phone Subscriber Number Group Number Insured Name Patient Relationship to Insured Coverage Start Date Coverage End Date [facility] [address] [place] [address] [phone] [id number] BRAYDON WEBB Self - patient is the insured Medical (General) History Medical History History ICD Code HTN Denies AR,DM,CVA,Lung disease,renal dise ase Hyperlipidemia Surgical History Surgery Date(Month/Year) Partial hysterectomy D&C
--- OUTSIDE RECORDS SUMMARY | 2025-07-02 16:40 | XMS_ITS | Patient Health Record ---
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 Lead Manufacturing Engineer Name Role Phone Dilshad Camarena Primary Care Provider Allergies Allergen (clinical drug ingredient) Drug/Non Drug Allergy documented on EMR Reaction Allergy Type Onset Date Status lisinopril Lisinopril cough Drug Allergy Activ e sulfamethoxazole / trimethoprim Bactrim hives Drug Allergy Active Results Component Value Reference Range Notes Complete Blood Count Auto Di ff Reviewed date:11/24/2024 12:48:13 PM Interpretation: Performing Lab:[facility], [address] [place] [phone] Notes/Report: White Blood Count 6.1 4.8-10.8 X10*3/uL [...] 0.0-0.2 /100WBC Neutrophils Absolute Auto 2.7 2.0-8.3 x10*3/uL Imm Gran Abs Auto 0.01 0.00-0.03 X10*3/uL Lymphocytes Absolute Auto 2.9 1.2-4.9 X10*3/uL Monocytes Absolute Auto 0.4 0.1-1.2 X10*3/uL Eosinophils Absolute Auto 0.1 0.0-0.4 X10*3/uL Basophils Absolute Auto 0.0 0.0-0.2 X10*3/uL NRBC Abs Auto 0.000 0.0-0.012 X10*3/uL Comprehensive [place]. Panel Fa st Reviewed date:11/24/2024 01:18:01 PM Interpretation: Performing Lab:[facility], [address] [place] [phone] Notes/Report: Sodium 142 135-145 mmol/L Potassium 3.0 [...] Panel Reviewed date:11/24/2024 01:06:13 PM Interpretation: Performing Lab:[facility], [address] [place] [phone] Notes/Report: Triglycerides 84 <150 mg/dL Desirable Triglyceride: [...] Total Reviewed date:11/24/2024 01:06:21 PM Interpretation: Performing Lab:[facility], [address] [place] [phone] Notes/Report: Vitamin D 25-OH Total 70.3 >30 [...] t Reviewed date:11/24/2024 01:39:11 PM Interpretation: Performing Lab:[facility], [address] [place] [phone] Notes/Report: Urine, Clean Catch Color Urine Dark Yellow Appearance Urine Cloudy PH 5.5 5.0-9.0 Glucose Urine UA Negative Negative mg/dL Urine Blood Negative Negative Specific [place] - Urine 1.025 1.005-1.025 Urine Protein Trace Neg-Trace mg/dL Urine Ketones Trace Negative mg/dL Nitrite Urine Negative Negative Leukocyte Esterase Urine Negative Negative RBC Urine 0-2 0-2 /HPF WBC Urine 0-5 0-5 /HPF Squamous Epithelial Cell Urine 6-10 0-2 /HPF Bacteria Urine None Seen None Seen Hyaline Casts Urine 3-5 0-2 /LPF Potassium Reviewed date:12/26/2024 12:26:40 PM Interpretation: Performing Lab:[facility], [address] [place] [phone] Notes/Report: Potassium 2.9 3.3-5.1 mmol/L Critical value for K: Results called to and read back by: LENA Khoury Person calling: CHANDLER Date: 12-26-24 Time: 1117 Potassium Reviewed date:12/29/2024 01:03:12 PM Interpretation: Performing Lab:[facility], [address] [place] [phone] Notes/Report: Potassium 3.3 3.3-5.1 mmol/L Pap Smear Reviewed date:06/08/2025 12:44:44 PM Interpretation: Performing Lab:[facility], [address] [place] [phone] Notes/Report: --- Name: Jennie Britton Age/Sex: 55/F : 1970 Unit#: [id number] Attend Dr: Vincenzo Hill MD Re05/28/25 Status : DEP REF Location: [facility] Disch: --- SPEC : [id number] REC STATUS: JACQUI ZURITA NUM: [id number] RICHARD: 05/28/[address] [facility] [address]: Vincenzo Hill MD ENTERED: 05/29/25 SP TYPE: Pap Smr OTHR DR: Dilshad Camarena MD ORDERED: Pap Smear Interpretation Satisfactory for evaluation. Negative for intraepithelial lesion or malignancy. HPV High Risk: Negative HPV Genotyping 16: Negative HPV Genotyping 18: Negative Clinical Information LMP: Unknown date Previous PAP test: Unknown date/findings Other history: Encounter for annual routine gynecological examination Material Received ThinPrep-Cervical PAP Disclaimer As of April 26, the technical services to include automated prescreening performed by the ThinPrep Imag ing System, PAP screening and HPV testing will be performed at [facility] (IA #[id number]), [address] [place] [address]. Testing for H PV was performed using the Mati ERIKA 6800 system. The presence of HPV in the female genital tract is associated with a number of diseases, including cervical carcinoma. The HPV D NA high risk pool tests for HPV 31, 33, 35, 39, 45, 51, 52, 56, 58, 59, 66 and 68. The testi ng for HPV 16 and 18 genotypes has also been performed. A positive result indicates detection of nucleic acid sequences from one or more subtypes, whereas a negative result indicates such sequences were not detected. All professional services are performed by [facility] ([address] [place] [address]; P h: [phone]; IA #[id number]). The PAP Test is a screening procedure with the inherent possibility of both false negative and false positive results. Results should be interpreted in the context of historic and current clinical findings. Reliability of the PAP Test is enhanced by performing the test on a regular repetit brigid basis. CONTINUED ON NEXT PAGE --- Name: Jennie Britton Age/Sex: 55/F : 1970 Unit#: [id number] Attend Dr: Vincenzo Hill MD Re05/28/25 Status : DEP REF Location: [facility] Disch: --- SPEC : [id number] REC STATUS: JACQUI ZURITA NUM: [id number] RICHARD: 05/28/[address] [facility] [address]: Vincenzo Hill MD ENTERED: 05/29/25 51 SP TYPE: Pap Smr OTHR DR: Dilshad Camarena MD ORDERED: Pap Smear Copies To: Dilshad Camarena MD [facility] [address] [facility] [address] [place] [address] Vincenzo Hill MD [facility] [address] [facility] [address] [place] [address] --- Signed (signature on file) MAHENDRA Castellanos (ASC) 06/08/25 1105 --- END OF REPORT HPV High risk Reviewed date:06/04/2025 05:29:37 PM Interpretation: Performing Lab:[facility], [address] [place] [phone] Notes/Report: HPV High Risk Negative Negative HPV Genotype 16 Negative Negative HPV Genotype 18 Negative Negative HPV testing performed at [facility] (CLIA #[id number]), [address] [place] [address]. Testing for HPV was performed using the Mati ERIKA 6800 system. The presence of HPV in the female genital tract is associated with a number of diseases, including cervical carcinoma. The HPV DNA high risk pool tests for HPV 31, 33, 35, 39, 45, 51, 52, 56, 58, 59, 66 and 68. The testing for HPV 16 and 18 genotypes has also been performed. A positive result indicates detection of nucleic acid sequences from one or more subtypes, whereas a negative result indicates such sequences were not detected. 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 Diagnosis 1 Women's annual routi ne gynecological examination (Z01.419) Referral Organization Dilshad Camarena MD Referring Provider First Name Dilshad Referring Provider Last Name Nicol Referring Provider Speciality Internal M edicine Referred Provider VINCENZO HILL Referred Provider Specialty OB - Gynecol ogy General Notes Vicenta Leungette 0 02/26/2025 03:18:23 PM >referral info kleverthiagodinesh Madhu Lillie 03/02/2025 10:38:13 AM >patient is aware of appt Referral Priority Routine Referral Appointment Date 05/24/2025 Medications Medication SIG (Take, Route, Frequency, Duration) Notes Start Date End Date Status Atorvastatin Calcium 80 MG TAKE 1 TABLET BY MOUTH EVERY DAY for 90 Active amLODIPine Besylate 10 MG TAKE 1 TABLET BY MOUTH EVERY DAY for 90 Active Vitamin D-3 1000 UNIT 1 capsule Orally O nce a day 09/12/2018 Active Potassium Chloride ER 10 MEQ take one tablet 3 times today then Orally once a day for 10 days 12/01/2024 Active Immunizations Vaccine Route Administration Date Status Comme nts SARS-COV-2 Pfizer Unknown 10/20/2020 Administered SARS-COV-2 Pfizer Unknown 11/10/2020 Administered SARS-COV-2 Pfizer Unknown 06/04/2021 Administered Flu Vaccine Unknown 07/29/2015 Refused Fluarix Quadrivalent Unknown 05/04/2016 Refused Fluarix Quadrivalent Unknown 09/01/2016 Refused Fluarix Quadrivalent Unknown 06/04/2017 Refused TDaP Unknown 06/04/2017 Refused Fluarix Quadrivalent Unknown 09/11/2019 Refused Fluarix Quadrivalent Unknown 09/30/2021 Refused Fluarix Quadrivalent Unknown 08/28/2022 Refused Social History Tobacco Use: Social History [...] ast year? 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 Problem 292058915 Abnormal magneti c resonance imaging of left breast (R92.8) Active confirmed Vital Signs Blood pressure diastolic 80 mm Hg 12/29/2024 niyah ght is up 6 pounds since 12-01-24 Height 62 in 12/29/2024 weight is up 6 pounds since 12-01-24 Blood pressure systolic 128 mm Hg 12/29/2024 weig ht is up 6 pounds since 12-01-24 Weight 198 lbs 12/29/2024 weight is up 6 pounds since 12-01-24 BMI 36.21 kg/m2 12/29/2024 weight is up 6 pounds since 12-01-24 Encounters Encounter Location Date Provider Diagnosis Dilshad Camarena MD [address] [place] [id number] 11/24/2024 Dilshad Camarena Blood tests for rout ine general physical examination Z00.00 ; Essential hypertension I10 ; Vitamin D deficiency E55.9 ; Pure hypercholesterolemia E78.00 and Lymphocytosis D72.820 Dilshad Camarena MD [address] [place] [id number] 12/26/2024 Dilshad Camarena Annual physical exam Z00.00 Dilshad Camarena MD [address] [place] [id number] 12/01/2024 Dilshad Camarena Annual physical exam Z00.00 ; Vitamin D deficiency E55.9 ; Pure hypercholesterolemia E78.00 ; Hypokalemia E87.6 ; Essential hypertension I10 and Depression screening Z13.31 Dilshad Camarena MD [address] [place] [id number] 12/29/2024 Dilshad Camarena Hypokalemia E87.6 an d Edema R60.9 Dilshad Camarena MD [address] [place] [id number] 07/17/2024 Dilshad Camarena MD [address] [place] [address] [id number] 12/01/2024 Dilshad Camarena MD [address] [place] [id number] 12/26/2024 Dilshad Camarena MD [address] [place], [place] [id number] 12/26/2024 Dilshad Camarena Hypokalemia E87.6 Assessments Encounter Date Diagnosis (ICD Code) Assessment Notes Treatment Notes Treatment Clinical Notes Section Notes 11/24/2024 Blood tests for rout ine general physical examination (ICD-10 - Z00.00) 12/26/2024 Annual physical exam (ICD-10 - Z00.00) 12/01/2024 Annual physical exam (ICD-10 - Z00.00) labs reviewed and discussed with patient 12/01/2024 Vitamin D deficiency (ICD-10 - E55.9) will stop as level is too high even taking it sporatically 12/29/2024 Hypokalemia (ICD-10 - E87.6) had not stopped her hctz as directed now is off. started on potassium 12/29/2024 Edema (ICD-10 - R60.9) no ev idence to suggest dvt since exam is norm and the swelling comes and goes 12/26/2024 Hypokalemia (ICD-10 - E87.6) 11/24/2024 Essential hypertensi on (ICD-10 - I10) 12/01/2024 Pure hypercholesterolemia (ICD-10 - E78.00) stable, will continue current regiment 11/24/2024 Vitamin D deficiency (ICD-10 - E55.9) 12/01/2024 Hypokalemia (ICD-10 - E87.6) patient verbalized understanding of medication and directions for use. will continue to monitor, lab pending 11/24/2024 Pure hypercholesterolemia (ICD-10 - E78.00) 12/01/2024 Essential hypertensi on (ICD-10 - I10) stable, will continue current regiment 11/24/2024 Lymphocytosis (ICD-1 0 - D72.820) 12/01/2024 Depression screening (ICD-10 - Z13.31) negative screen Plan Of Treatment Pending Test Test Name Order Date XR CHEST 2 VIEW PA & LAT 08/21/2022 Next Appt Details Provider Name:Dilshad velásquez, 11/29/2025 07:30:00 AM, [address], [address], [place], [place], [phone], Provider Name:Dilshad velásquez, 12/06/2025 09:30:00 AM, [address], [place], [place], [phone], Insurance Providers Payer Name Payer Address Payer Phone Subscriber Number Group Number Insured Name Patient Relationship to Insured Coverage Start Date Coverage End Date [employer] [facility] [address] [place], [place] [id number] Jennie Britton Self - patient is the insured Medical (General) History Medical History History ICD Code discussed colonoscopy 2022 and 2024 refu ses colonoscopy or cologard
--- OUTSIDE RECORDS SUMMARY | 2025-07-02 16:40 | XMS_ITS | Data Portability ---
Author Organization [facility] [facility] [employer], [id number] Address [address] [place] [address] Assessment No assessment recorded. Plan of Treatment [...] Out Template NON DOT completed JASWANT [employer] 06/19/2022 18:32:25 Imaging Results None recorded. Procedure [...] Diagnosis SNOMED-CT Code Diagnosis ICD10 Code Diagnosis IMO Codes Diagnosis Note [id number] [facility] [address] [place] [phone] 02/04/2020 09:40:19 02/04/2020 10:33:30 [id number] [facility] [address] [place] [phone] 10/16/2021 17:17:28 10/16/2021 18:20:54 [id number] [facility] [address] [place] [phone] 06/19/2022 17:13:43 06/19/2022 20:02:15 History and physical examination, pre-employment [id number] Z02.1 Health Concerns Section Related Observation LastModified by Organization Detai ls LastModified Time None Recorded Concern Status LastModified by Organization Details LastModified Time None Recorded Advance Directives Directive None Recorded Payers Insurance Date Sequence Insurance Name Policy Number Policy Griffiths Covered Member ID Griffiths Member ID Guarantor Name 06/19/2022 1 [employer] [id number] Jennie Tobi [id number] Jennie Britton 06/19/2022 OC-ESCREEN Jennie Britton [id number] Jennie Britton OBGyn Episode No OBEpisode recorded.
== END 2025-07-02 14:41 | disposition home or self-care (01) ==
LOC: HO.HGS 14:16
PROVIDERS: PCP Internal Medicine; Visit Provider Surgery
DX: Z80.3 Family history of malignant neoplasm of breast (principal); Z15.89 Genetic susceptibility to other disease
CPT/HCPCS: 99204